=== PATIENT | female | born 1995 | race Caucasian/White ===

== ENCOUNTER 2021-08-10 15:30 | Inpatient (IN) | payer OTHER, SELFPAY ==
[2021-08-10] MEDS: LORazepam 1 MG TABLET PO (17:31)
[2021-08-10 18:00] VITALS: BP 142/91; PULSE 73; RESP 16; TEMP 36.7; O2SAT 96
[2021-08-10] MEDS: traZODone HCL 50 MG TABLET PO (21:02)
[2021-08-10] MEDS: OLANZapine 5 MG TABLET PO (21:02)
[2021-08-11] MEDS: hydrOXYzine HCL 25 MG TABLET PO (00:31)
[2021-08-11] MEDS: traZODone HCL 50 MG TABLET PO ×2 (00:31→20:17)
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
[2021-08-11 06:00] VITALS: BP 131/81; PULSE 77; RESP 15; TEMP 36.6; O2SAT 100
[2021-08-11] MEDS: FLUoxetine HCl Oral Solution 20 MG/5 ML SOLUTION 30 MG PO (09:20)
[2021-08-11] MEDS: ARIPiprazole 2 MG TABLET PO (09:20)
[2021-08-11] MEDS: lamoTRIgine 100 MG TABLET 200 MG PO (09:20)
[2021-08-11] MEDS: Acetaminophen 325 MG TABLET 650 MG PO ×2 (10:04→19:07)
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
[2021-08-11] MEDS: ARIPiprazole 5 MG TABLET PO (12:33)
[2021-08-11] MEDS: LORazepam 0.5 MG TABLET PO (12:33)
[2021-08-11 18:00] VITALS: BP 133/84; PULSE 79; TEMP 36.7; O2SAT 99
[2021-08-11] MEDS: Prazosin HCL 1 MG CAPSULE PO (20:17)
[2021-08-12] MEDS: clonazePAM 0.5 MG TABLET PO ×2 (00:57→11:49)
[2021-08-12 08:07] VITALS: BP 129/69; PULSE 97; TEMP 37.2; O2SAT 100
[2021-08-12] MEDS: ARIPiprazole 5 MG TABLET PO (09:48)
[2021-08-12] MEDS: lamoTRIgine 100 MG TABLET 200 MG PO (09:48)
--- NOTE | 2021-08-12 11:05 | PM.IMCN ---
History of Present Illness Data of Consult Service Date: 08/12/21 Primary Care Provider: Unknown Physician HPI Reason for consult: Medical evaluation A 25 years old lady with history of asthma, bipolar disease who presents to the hospital for Psychiatry admission for episode of molly. The patient reported that she is in good health generally and rarely has to use rescue inhaler for the asthma. Denies any fever, chills, chest pain, change in bowel habit or urinary symptoms. Hospitalist team asked to evaluate the patient as new admission to the psych unit. Review of Systems Review of Systems: No fever, chills or weakness No chest pain, palpitation No shortness of breath or coughing No abdominal pain, nausea or vomiting No urinary symptoms No any rash or wounds PMFSH Medical History Bipolar 1 disorder, manic, moderate Social History Household Members: Other Household Members Other:: sister and partner with her 2 children Housing: House Do you presently have visiting nurse or other home services: No Patient Tobacco Use Status: Never used Tobacco Use of substances other than those prescribed or required for medical reasons: Yes Substance Use Type: Marijuana Substance Use Frequency: Weekly Last Used Substance: Unknown Currently Displaying Signs/Symptoms of Drug Intoxication Withdrawal: No Any prior treatment program specific to substance use: No Have you been hit, kicked, punched, or otherwise hurt by someone within the past year? If so, by whom?: No Do you feel safe in your current relationship?: Yes Is there a partner from a previous relationship who is making you feel unsafe now?: No Are you made to feel afraid or neglected: No Advance Directives: No Advance Directives Information Provided: No Advance Directives on File: No Do you have thoughts of harming others: None Do you have a plan to hurt others: No Plan Recently lost weight without trying: Unsure How much weight loss: Unsure Eating poorly because of decreased appetite: No Nutrition screen score: 4 Nutrition Risks: No Nutritional Risk Patient : No : No Poor oral hygiene: No Meds Allergies Allergy/AdvReac Type Severity Reaction Status Date / Time amoxicillin Allergy Unknown Unknown Verified 08/10/21 14:06 clarithromycin [Biaxin] Allergy Unknown hives Verified 01/21/17 00:00 Active Medications: Current Medications Acetaminophen (Acetaminophen 325 Mg Tablet) 650 mg PO Q6H PRN PRN Reason: Headache/Pain Mild Scale (1-3) Last Admin: 08/11/21 19:07 Dose: 650 mg Documented by: Al Hydroxide/Mg Hydroxide (Magnesium Hydrox/Alum Hydrox 30 Ml Oral.Susp) 30 ml PO Q6H PRN PRN Reason: Heartburn/Nausea Aripiprazole (Aripiprazole 5 Mg Tablet) 5 mg PO DAILY [facility] Last Admin: 08/12/21 09:48 Dose: 5 mg Documented by: Clonazepam (Clonazepam 0.5 Mg Tablet) 0.5 mg PO BID PRN PRN Reason: Anxiety Last Admin: 08/12/21 00:57 Dose: 0.5 mg Documented by: Hydroxyzine HCl (Hydroxyzine Hcl 25 Mg Tablet) 25 mg PO BEDTIME PRN PRN Reason: Anxiety Last Admin: 08/11/21 00:31 Dose: 25 mg Documented by: Lamotrigine (Lamotrigine 100 Mg Tablet) 200 mg PO DAILY [facility] Last Admin: 08/12/21 09:48 Dose: 200 mg Documented by: Magnesium Hydroxide (Milk Of Magnesia 30 Ml Oral.Susp) 30 ml PO DAILY PRN PRN Reason: Constipation Prazosin HCl (Prazosin Hcl 1 Mg Capsule) 1 mg PO BEDTIME [facility]; Protocol Last Admin: 08/11/21 20:17 Dose: 1 mg Documented by: Trazodone HCl (Trazodone Hcl 50 Mg Tablet) 50 mg PO BEDTIME [facility] Last Admin: 08/11/21 20:17 Dose: 50 mg Documented by: Trazodone HCl (Trazodone Hcl 50 Mg Tablet) 50 mg PO BEDTIME PRN PRN Reason: continued insomnia Home Medications Medication Instructions Recorded Confirmed Last Taken Type fluoxetine 10 mg capsule 10 mg PO DAILY 08/10/21 08/10/21 08/09/21 History fluoxetine 20 mg capsule 20 mg PO DAILY 08/10/21 08/10/21 08/09/21 History lamotrigine 200 mg tablet 200 mg PO DAILY 08/10/21 08/10/21 08/09/21 History olanzapine 5 mg tablet 5 mg PO BEDTIME 08/10/21 08/10/21 08/09/21 History Physical Exam Vital Signs and Narrative: Vital Signs: Last Vital Signs Temp 98.9 F 08/12/21 08:07 Pulse 97 08/12/21 08:07 Resp 15 08/11/21 06:00 BP 129/69 08/12/21 08:07 Pulse Ox 100 08/12/21 08:07 Const: Other: Constitutional : Alert, oriented, not in distress Neck : Normal inspection, Supple Cardiovascular : RRR, no JVP, no lower extremity edema Respiratory : fair bilateral air entry, no crackles, wheezes or rhonchi Gastrointestinal: soft, lax, Normal bowel sounds, Non tender Skin : Warm, Dry Neurological : Alert & oriented x3, No focal deficit , CN 2-12 within normal Assessment and Plan (1) Bipolar 1 disorder, manic, moderate: Status: Acute Plan A 25 years old lady with history of asthma, bipolar disease who presents to the hospital for Psychiatry admission for episode of molly. History of asthma To use albuterol inhaler p.r.n. if needed Molly attack, bipolar disease Psychiatry team following for treatment Thank you for the consult, will sign of for now, please contact hospitalist team for any further questions.
--- NOTE | 2021-08-12 12:50 | HO.PSYCHPN ---
Subjective Subjective Date of Service: 08/12/21 Reason For Visit: Bipolar Interim History: gokul worse; no sleep last night; more disorganized walking into others room and sitting on bed, redirectable, but unaware of odditity. Pt agrees zyprexa was helping pt sleep but wants does not want to restart. Laughing hysterically during interview, saying some odd things. She remains with insight that she has gokul from bipolar and wants treatment. Pt agrees to start Depakote. She did not want to know the side-effects/risks at this time but wants to wait until she's more clear minded. Mental Status Exam Mental Status Exam Narrative: Pt is alert and oriented; behavior is cooperative, overly friendly, laughing inappropriately, disorganized, talkative; patient is not in distress; well groomed, dressed in casual attire with good hygiene; mood is described as: just laughs when asked; affect labile; eye contact appropriate; Speech is pressured; normal volume and prosody; psychomotor agitation present; thought process is disorganized but can be reigned in to be goal oriented for a short while; Thought content is on random topics but also on manic episode and tx; can calm down for moments and be pertinent to relevant topics but it does not last; some paranoid ideations about boyfriend, staff expressed; denies any SI/HI. There is no evidence of perceptual disturbance. ?Patients insight and judgment are impaired. Diagnostics Vital Signs (24Hr): Vital Signs - 24 hr 08/11/21 18:00 08/12/21 08:07 Temperature 98.0 F 98.9 F Pulse Rate 79 97 Blood Pressure 133/84 129/69 Pulse Oximetry 99 100 Medications Medications Current Medications Acetaminophen (Acetaminophen 325 Mg Tablet) 650 mg PO Q6H PRN PRN Reason: Headache/Pain Mild Scale (1-3) Last Admin: 08/11/21 19:07 Dose: 650 mg Documented by: Al Hydroxide/Mg Hydroxide (Magnesium Hydrox/Alum Hydrox 30 Ml Oral.Susp) 30 ml PO Q6H PRN PRN Reason: Heartburn/Nausea Aripiprazole (Aripiprazole 5 Mg Tablet) 5 mg PO DAILY [facility] Last Admin: 08/12/21 09:48 Dose: 5 mg Documented by: Clonazepam (Clonazepam 0.5 Mg Tablet) 0.5 mg PO BID PRN PRN Reason: Anxiety Last Admin: 08/12/21 11:49 Dose: 0.5 mg Documented by: Divalproex Sodium (Divalproex Sodium Er 250 Mg Tab.Er.24h) 250 mg PO ONCE ONE Stop: 08/12/21 12:49 Divalproex Sodium (Divalproex Sodium Er 250 Mg Tab.Er.24h) 750 mg PO BEDTIME [facility] Hydroxyzine HCl (Hydroxyzine Hcl 25 Mg Tablet) 25 mg PO BEDTIME PRN PRN Reason: Anxiety Last Admin: 08/11/21 00:31 Dose: 25 mg Documented by: Lamotrigine (Lamotrigine 100 Mg Tablet) 200 mg PO DAILY [facility] Last Admin: 08/12/21 09:48 Dose: 200 mg Documented by: Lorazepam (Lorazepam 1 Mg Tablet) 1 mg PO ONCE ONE Stop: 08/12/21 12:49 Lorazepam (Lorazepam 1 Mg Tablet) 1 mg PO BEDTIME [facility] Magnesium Hydroxide (Milk Of Magnesia 30 Ml Oral.Susp) 30 ml PO DAILY PRN PRN Reason: Constipation Prazosin HCl (Prazosin Hcl 1 Mg Capsule) 1 mg PO BEDTIME [facility]; Protocol Last Admin: 08/11/21 20:17 Dose: 1 mg Documented by: Trazodone HCl (Trazodone Hcl 50 Mg Tablet) 50 mg PO BEDTIME [facility] Last Admin: 08/11/21 20:17 Dose: 50 mg Documented by: Trazodone HCl (Trazodone Hcl 50 Mg Tablet) 50 mg PO BEDTIME PRN PRN Reason: continued insomnia Allergies Allergies Allergy/AdvReac Type Severity Reaction Status Date / Time amoxicillin Allergy Unknown Unknown Verified 08/10/21 14:06 clarithromycin [Biaxin] Allergy Unknown hives Verified 01/21/17 00:00 Assessment & Plan Assessment & Plan (1) Bipolar 1 disorder, manic, moderate: Status: Acute Code(s): F31.12 - Bipolar disorder, current episode manic without psychotic features, moderate 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 -patient moderately manic; bipolar depression under treated on current regimen. -will DC Prozac since it has not helped treat her depression and could contribute manic symptoms -will see if Abilify can help reduce gokul; seems like Zyprexa was helping patient sleep however she does not want this medication due to it makes her anxious she says acne 5/8 more manic and disorganized; did not sleep since off zyprexa; starting depakote. did not see UPT in transfer notes so will order one Plan: CV Q 15 minute checks START Depkaote ER 750mg (gave one time dose of 250mg) Start Ativan 1mg qhs DC abilify DC scheduled trazodone Continue Lamictal 200 mg daily Discontinue Prozac; patient says it has not helped her depression and it is possible it could contribute to having triggered manic episode along with Adderall Discontinue Zyprexa: Patient says she does not want Labs reviewed: CBC, LFTs, lytes, BUN/creatinine all within normal limits UDS negative COVID negative Urine ? I spent minutes with the patient and/or on the patient floor today, greater than?50% of which was spent counseling/coordinating care. Patient educated on: diagnosis and medication risk/benefits Informed Consent: understands Reason for contiued inpatient stay Substantial Risk for: rapid decompensation
[2021-08-12] MEDS: LORazepam 1 MG TABLET PO (13:50)
[2021-08-12] MEDS: Divalproex Sodium ER 250 MG TAB.ER.24H PO (13:50)
[2021-08-12 18:00] VITALS: BP 125/78; PULSE 104; RESP 18; TEMP 37; O2SAT 98
[2021-08-12 18:42] LABS: UPreg QC Valid YES; Urine Pregnancy NEGATIVE (NEGATIVE)
[2021-08-12] MEDS: Divalproex Sodium ER 250 MG TAB.ER.24H 750 MG PO (21:45)
[2021-08-12] MEDS: Prazosin HCL 1 MG CAPSULE PO (21:46)
[2021-08-12] MEDS: traZODone HCL 50 MG TABLET PO (21:46)
[2021-08-13] MEDS: hydrOXYzine HCL 25 MG TABLET PO (00:25)
[2021-08-13] MEDS: Divalproex Sodium ER 500 MG TAB.ER.24H PO (02:30)
[2021-08-13] MEDS: LORazepam 1 MG TABLET PO ×3 (02:30→22:12)
[2021-08-13 08:00] VITALS: BP 111/68; PULSE 110; TEMP 36.8; O2SAT 98
[2021-08-13] MEDS: lamoTRIgine 100 MG TABLET 200 MG PO (09:22)
[2021-08-13] MEDS: clonazePAM 0.5 MG TABLET PO (13:25)
--- NOTE | 2021-08-13 16:53 | HO.PSYCHPN ---
Subjective Subjective Date of Service: 08/13/21 Reason For Visit: Bipolar Interim History: Patient remains manic. Patient is laughing inappropriately. She says at least a know who my family is... I think and then she lists some but she says I need to figure out who I am. Then she said I know my boyfriend is.. is it him or is it him? At one point, Patient endorses auditory hallucinations and got paranoid and fearful but could not say about what but started to cry. Patient reports she slept a little better last night. She agrees to continue with Depakote pt's cousin came to visit and encouraged patient to remain on the unit as patient was making her to take her home. Cousins says that this is close to his bad as she seen patient before. Also that patient has paranoid thoughts about her mother who cousin says is very gentle and loving. Mental Status Exam Mental Status Exam Narrative: Pt is alert and oriented; behavior is disorganized ranging from cooperative, overly friendly, laughing inappropriately to paranoid, tearful; well groomed, dressed in casual attire with good hygiene; mood is described as anxious and affect labile; eye contact appropriate; Speech is pressured; normal volume and prosody; psychomotor agitation present; thought process is disorganized but can be reigned in to be goal oriented for a short while; Thought content is on random topics but also on manic episode and tx; can calm down for moments and be pertinent to relevant topics but it does not last; intermittent paranoid ideations about people; denies any SI/HI. +AH ?Patients insight and judgment are impaired. Diagnostics Vital Signs (24Hr): Vital Signs - 24 hr 08/12/21 18:00 08/13/21 08:00 Temperature 98.6 F 98.3 F Pulse Rate 104 H 110 H Respiratory Rate 18 Blood Pressure 125/78 111/68 Pulse Oximetry 98 98 Labs Labs: Laboratory Results - last 48 hr 08/12/21 17:50 Urine Test NEGATIVE Medications Medications Current Medications Acetaminophen (Acetaminophen 325 Mg Tablet) 650 mg PO Q6H PRN PRN Reason: Headache/Pain Mild Scale (1-3) Last Admin: 08/11/21 19:07 Dose: 650 mg Documented by: Al Hydroxide/Mg Hydroxide (Magnesium Hydrox/Alum Hydrox 30 Ml Oral.Susp) 30 ml PO Q6H PRN PRN Reason: Heartburn/Nausea Divalproex Sodium (Divalproex Sodium Er 500 Mg Tab.Er.24h) 1,000 mg PO BEDTIME [facility] Divalproex Sodium (Divalproex Sodium Er 500 Mg Tab.Er.24h) 500 mg PO DAILY [facility] Hydroxyzine HCl (Hydroxyzine Hcl 25 Mg Tablet) 25 mg PO QID PRN PRN Reason: Anxiety Lamotrigine (Lamotrigine 100 Mg Tablet) 200 mg PO DAILY [facility] Last Admin: 08/13/21 09:22 Dose: 200 mg Documented by: Lorazepam (Lorazepam 1 Mg Tablet) 1 mg PO BEDTIME [facility] Last Admin: 08/12/21 23:41 Dose: Not Given Documented by: Lorazepam (Lorazepam 1 Mg Tablet) 1 mg PO Q6H PRN PRN Reason: Anxiety Magnesium Hydroxide (Milk Of Magnesia 30 Ml Oral.Susp) 30 ml PO DAILY PRN PRN Reason: Constipation Prazosin HCl (Prazosin Hcl 1 Mg Capsule) 2 mg PO BEDTIME [facility]; Protocol Trazodone HCl (Trazodone Hcl 50 Mg Tablet) 50 mg PO BEDTIME PRN PRN Reason: continued insomnia Last Admin: 08/12/21 21:46 Dose: 50 mg Documented by: Allergies Allergies Allergy/AdvReac Type Severity Reaction Status Date / Time amoxicillin Allergy Unknown Unknown Verified 08/10/21 14:06 clarithromycin [Biaxin] Allergy Unknown hives Verified 01/21/17 00:00 Assessment & Plan Assessment & Plan (1) Bipolar I disorder, most recent episode manic, severe with psychotic features: Status: Acute Code(s): F31.2 - Bipolar disorder, current episode manic severe with psychotic features Plan 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 Hospital course: -initially patient moderately manic; bipolar depression under treated on current regimen. -will DC Prozac since it has not helped treat her depression and could contribute manic symptoms -will see if Abilify can help reduce gokul; seems like Zyprexa was helping patient sleep however she does not want this medication due to it makes her anxious she says acne 5/8 more manic and disorganized; did not sleep since off zyprexa; starting depakote. did not see UPT in transfer notes so will order one 08/13 patient continues to be manic and disorganized, labile, paranoid with auditory hallucinations. It seems that Zyprexa which was started at [facility] while waiting for admission, was partially helpful; however patient wanted to come off it and start Depakote instead. Will continue with Depakote for now however if patient does not at least partially response soon will very likely adds another medication. Patient has insight to know that she has bipolar disorder and is currently manic in need of medications; however she does not grasp the severity has placed a 3 day wanting to discharge; she says she will retract but has not yet done so PLAN: 3 day Q 15 minute checks Continue Depakote ER 500 mg in the a.m. and 1000 mg q.h.s. Valproate level ordered LFTs and ammonia labs ordered Ativan 1mg qhs and as prn DC abilify (only on 2mg, reportedly started at [facility]) DC scheduled trazodone Continue Lamictal 200 mg daily Discontinue Prozac; patient says it has not helped her depression and it is possible it could contribute to having triggered manic episode along with Adderall Discontinue Zyprexa (started at [facility]):? Patient says she does not want Labs reviewed: CBC, LFTs, lytes, BUN/creatinine all within normal limits UDS negative COVID negative Urine : negative I spent minutes with the patient and/or on the patient floor today, greater than?50% of which was spent counseling/coordinating care. Patient educated on: diagnosis and medication risk/benefits Informed Consent: understands Reason for contiued inpatient stay Substantial Risk for: inability to function and rapid decompensation
[2021-08-13 21:10] VITALS: BP 134/84; PULSE 114; TEMP 36.7
[2021-08-13] MEDS: Prazosin HCL 1 MG CAPSULE 2 MG PO (22:11)
[2021-08-13] MEDS: Divalproex Sodium ER 500 MG TAB.ER.24H 1000 MG PO (22:12)
[2021-08-14 06:00] VITALS: BP 131/86; PULSE 109; RESP 20; TEMP 36.9; O2SAT 98
[2021-08-14] MEDS: Divalproex Sodium ER 500 MG TAB.ER.24H PO (08:01)
[2021-08-14] MEDS: lamoTRIgine 100 MG TABLET 200 MG PO (08:01)
[2021-08-14] MEDS: LORazepam 1 MG TABLET PO ×2 (08:01→21:47)
--- NOTE | 2021-08-14 15:01 | PC.NURSE ---
Pt signed a 3 day note on 08/14, up on 08/17
--- NOTE | 2021-08-14 15:36 | P.PNPSI_ITS ---
Subjective Subjective Date of Service: 08/14/21 Reason For Visit: Bipolar Interim History: pt agrees outward behavior a little calmer, however she feels internally reeved up and she remains manic. Pt has AH which she says is worsening; it's sometimes of encouraging voices of cousins, but other times, it's a running disparagig commentary about what she's doing such as that's stupid. She is grateful to learn from ghost writer that this is a hallucination caused by Bipolar illness since pt says it's seems increasingly real. Pt feels paranoid and confused but has a hard time articulating details. She reports little to no sleep last night. Discussed treatment and pt agrees symptoms worsened some when stopped zyprexa, however this med also seemed to increase anxiety and pt does not like risk of wt gain side-effect. Discussed Ziprasidone risks/benefits and she agrees to trial as psychotic symptoms associated w/ gokul are becoming more pronounced. Pt randomly started taking about putting herself in Trendelenburg position for the baby which she wanted; later explained that she was but took plan B. Mental Status Exam Mental Status Exam Narrative: Pt is alert and oriented; behavior is disorganized ranging from cooperative, overly friendly, laughing inappropriately to paranoid, tearful; well groomed, dressed in casual attire with good hygiene; mood is described as anxious and affect labile; eye contact appropriate; Speech is pressured (though a little less so); normal volume and prosody;some psychomotor agitation present but a little less; thought process is disorganized but can be reigned in to be goal oriented for a short while; Thought content is on random topics but also on manic episode and tx; can calm down for moments and be pertinent to relevant topics but it does not last; intermittent paranoid ideations about people; denies any SI/HI. +AH ?Patients insight and judgment are impaired. Diagnostics Vital Signs (24Hr): Vital Signs - 24 hr 08/13/21 21:10 08/14/21 06:00 Temperature 98.1 F 98.4 F Pulse Rate 114 H 109 H Respiratory Rate 20 Blood Pressure 134/84 131/86 Pulse Oximetry 98 Labs Labs: Laboratory Results - last 48 hr 08/12/21 17:50 Urine Test NEGATIVE Medications Medications Current Medications Acetaminophen (Acetaminophen 325 Mg Tablet) 650 mg PO Q6H PRN PRN Reason: Headache/Pain Mild Scale (1-3) Last Admin: 08/11/21 19:07 Dose: 650 mg Documented by: Al Hydroxide/Mg Hydroxide (Magnesium Hydrox/Alum Hydrox 30 Ml Oral.Susp) 30 ml PO Q6H PRN PRN Reason: Heartburn/Nausea Albuterol Sulfate (Albuterol Sulfate 90 Mcg 8 Gm Inhaler) 2 puff INHALE RQ4H PRN PRN Reason: Shortness of Breath Divalproex Sodium (Divalproex Sodium Er 500 Mg Tab.Er.24h) 1,000 mg PO BEDTIME [facility] Last Admin: 08/13/21 22:12 Dose: 1,000 mg Documented by: Divalproex Sodium (Divalproex Sodium Er 500 Mg Tab.Er.24h) 500 mg PO DAILY [facility] Last Admin: 08/14/21 08:01 Dose: 500 mg Documented by: Hydroxyzine HCl (Hydroxyzine Hcl 25 Mg Tablet) 25 mg PO QID PRN PRN Reason: Anxiety Lamotrigine (Lamotrigine 100 Mg Tablet) 200 mg PO DAILY [facility] Last Admin: 08/14/21 08:01 Dose: 200 mg Documented by: Lorazepam (Lorazepam 1 Mg Tablet) 1 mg PO BEDTIME [facility] Last Admin: 08/13/21 22:12 Dose: 1 mg Documented by: Lorazepam (Lorazepam 1 Mg Tablet) 1 mg PO Q6H PRN PRN Reason: Anxiety Last Admin: 08/14/21 08:01 Dose: 1 mg Documented by: Magnesium Hydroxide (Milk Of Magnesia 30 Ml Oral.Susp) 30 ml PO DAILY PRN PRN Reason: Constipation Prazosin HCl (Prazosin Hcl 1 Mg Capsule) 2 mg PO BEDTIME [facility]; Protocol Last Admin: 08/13/21 22:11 Dose: 2 mg Documented by: Trazodone HCl (Trazodone Hcl 50 Mg Tablet) 50 mg PO BEDTIME PRN PRN Reason: continued insomnia Last Admin: 08/12/21 21:46 Dose: 50 mg Documented by: Ziprasidone (Ziprasidone 20 Mg Capsule) 20 mg PO ONCE ONE Stop: 08/14/21 15:35 Ziprasidone (Ziprasidone 20 Mg Capsule) 20 mg PO BIDAC [facility] Allergies Allergies Allergy/AdvReac Type Severity Reaction Status Date / Time amoxicillin Allergy Unknown Unknown Verified 08/10/21 14:06 clarithromycin [Biaxin] Allergy Unknown hives Verified 01/21/17 00:00 Assessment & Plan Assessment & Plan (1) Bipolar I disorder, most recent episode manic, severe with psychotic features: Status: Acute Code(s): F31.2 - Bipolar disorder, current episode manic severe with psychotic features 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 Hospital course: -initially patient moderately manic; bipolar depression under treated on current regimen. -will DC Prozac since it has not helped treat her depression and could contribute manic symptoms -will see if Abilify can help reduce gokul; seems like Zyprexa was helping patient sleep however she does not want this medication due to it makes her anxious she says acne 5 more manic and disorganized; did not sleep since off zyprexa; starting depakote. don't see UPT in transfer notes so will order 08/13 patient continues to be manic and disorganized, labile, paranoid with auditory hallucinations. It seems that Zyprexa which was started at [facility] ED while waiting for admission, was partially helpful; however patient wanted to come off it and start Depakote instead. Will continue with Depakote for now however if patient does not at least partially response soon will very likely adds another medication. Patient has insight to know that she has bipolar disorder and is currently manic in need of medications; however she does not grasp the severity has placed a 3 day wanting to discharge; she says she will retract but has not yet done so 5/10 less hyperactive and speech less pressured, but increase in AH and paranoid thoughts and confusion. Little to no sleep last night. Agrees to add Ziprasidone to regimen (zyprexa seemed helpful, but side-effects) PLAN: 3 day Q 15 minute checks START Ziprasidone 20mg BIDAC for additional mood stabilizer as psychotic symptoms worsening Continue Depakote ER 500 mg in the a.m. and 1000 mg q.h.s.; helped reduce pressured speech and some hyperactivity Valproate level ordered LFTs and ammonia labs ordered Ativan 1mg qhs and as prn DC abilify (only on 2mg, reportedly started at [facility]) DC scheduled trazodone Continue Lamictal 200 mg daily Discontinue Prozac; patient says it has not helped her depression and it is possible it could contribute to having triggered manic episode along with Adderall Discontinue Zyprexa (started at [facility]):? Patient says she does not want Labs reviewed: CBC, LFTs, lytes, BUN/creatinine all within normal limits UDS negative COVID negative Urine : negative I spent minutes with the patient and/or on the patient floor today, greater than?50% of which was spent counseling/coordinating care. Patient educated on: diagnosis and medication risk/benefits Informed Consent: understands Reason for contiued inpatient stay Substantial Risk for: inability to function and rapid decompensation
[2021-08-14] MEDS: Ziprasidone 20 MG CAPSULE PO ×2 (16:24→21:47)
[2021-08-14] MEDS: Divalproex Sodium ER 500 MG TAB.ER.24H 1000 MG PO (21:46)
[2021-08-14] MEDS: Prazosin HCL 1 MG CAPSULE 2 MG PO (21:48)
[2021-08-14 21:50] VITALS: BP 129/75; PULSE 109; TEMP 37.1
[2021-08-15 08:50] VITALS: BP 132/76; PULSE 101; TEMP 36.7; O2SAT 100
[2021-08-15] MEDS: lamoTRIgine 100 MG TABLET 200 MG PO (08:58)
[2021-08-15] MEDS: Divalproex Sodium ER 500 MG TAB.ER.24H PO (08:59)
[2021-08-15] MEDS: Ziprasidone 20 MG CAPSULE PO ×2 (08:59→12:54)
--- NOTE | 2021-08-15 10:23 | P.PNPSI_ITS ---
Subjective Subjective Date of Service: 08/15/21 Reason For Visit: Bipolar Interim History: continued and worsening AH and delusional thinking. Agrees to try Risperdal and dc Ziprasidone Patient shared her struggles with paranoid delusional thoughts, saying she is not sure if her father is a real father, her mother her room other. She says she knows she is not but in her head she thinks she is and has thought she is giving . At 1 point patient asked if mortgage loan underwriter was her father. Patient shared the emotional Angst she is going through feeling so confused. She knows the confusion and the delusions are not real even though they feel real to her and she knows it is due to her bipolar illness. Patient is able to reality test and responds well when mortgage loan underwriter Helps her do so. Patient shared about some family dynamics between her, her mother and father however it is not clear if this is delusional or factual Mental Status Exam Mental Status Exam Narrative: Pt is alert and oriented; behavior is no longer hyperactive, however it ranges from disorganized to organized, cooperative and overly friendly to paranoid; laughing inappropriately or tearful; well groomed, dressed in casual attire with good hygiene; mood is described as anxious and affect labile; eye contact appropriate; Speech is no longer pressured; normal volume and prosody;no psychomotor agitation present; thought process can be goal oriented for a time but easily becomes distracted and disorganize; Thought content is on random delusional topics but she also on current manic episode and tx; intermittent paranoid ideations about people; denies any SI/HI. +AH ?Patients insight and judgment are impaired. Diagnostics Vital Signs (24Hr): Vital Signs - 24 hr 08/14/21 21:50 08/15/21 08:50 Temperature 98.7 F 98.1 F Pulse Rate 109 H 101 H Blood Pressure 129/75 132/76 Pulse Oximetry 100 Medications Medications Current Medications Acetaminophen (Acetaminophen 325 Mg Tablet) 650 mg PO Q6H PRN PRN Reason: Headache/Pain Mild Scale (1-3) Last Admin: 08/11/21 19:07 Dose: 650 mg Documented by: Al Hydroxide/Mg Hydroxide (Magnesium Hydrox/Alum Hydrox 30 Ml Oral.Susp) 30 ml PO Q6H PRN PRN Reason: Heartburn/Nausea Albuterol Sulfate (Albuterol Sulfate 90 Mcg 8 Gm Inhaler) 2 puff INHALE RQ4H PRN PRN Reason: Shortness of Breath Divalproex Sodium (Divalproex Sodium Er 500 Mg Tab.Er.24h) 1,000 mg PO BEDTIME [facility] Last Admin: 08/14/21 21:46 Dose: 1,000 mg Documented by: Divalproex Sodium (Divalproex Sodium Er 500 Mg Tab.Er.24h) 500 mg PO DAILY [facility] Last Admin: 08/15/21 08:59 Dose: 500 mg Documented by: Hydroxyzine HCl (Hydroxyzine Hcl 25 Mg Tablet) 25 mg PO QID PRN PRN Reason: Anxiety Lamotrigine (Lamotrigine 100 Mg Tablet) 200 mg PO DAILY [facility] Last Admin: 08/15/21 08:58 Dose: 200 mg Documented by: Lorazepam (Lorazepam 1 Mg Tablet) 1 mg PO BEDTIME [facility] Last Admin: 08/14/21 21:47 Dose: 1 mg Documented by: Lorazepam (Lorazepam 1 Mg Tablet) 1 mg PO Q6H PRN PRN Reason: Anxiety Last Admin: 08/14/21 08:01 Dose: 1 mg Documented by: Magnesium Hydroxide (Milk Of Magnesia 30 Ml Oral.Susp) 30 ml PO DAILY PRN PRN Reason: Constipation Prazosin HCl (Prazosin Hcl 1 Mg Capsule) 2 mg PO BEDTIME [facility]; Protocol Last Admin: 08/14/21 21:48 Dose: 2 mg Documented by: Trazodone HCl (Trazodone Hcl 50 Mg Tablet) 50 mg PO BEDTIME PRN PRN Reason: continued insomnia Last Admin: 08/12/21 21:46 Dose: 50 mg Documented by: Ziprasidone (Ziprasidone 20 Mg Capsule) 20 mg PO BIDAC [facility] Last Admin: 08/15/21 08:59 Dose: 20 mg Documented by: Allergies Allergies Allergy/AdvReac Type Severity Reaction Status Date / Time amoxicillin Allergy Unknown Unknown Verified 08/10/21 14:06 clarithromycin [Biaxin] Allergy Unknown hives Verified 01/21/17 00:00 Assessment & Plan Assessment & Plan (1) Bipolar I disorder, most recent episode manic, severe with psychotic features: Status: Acute Code(s): F31.2 - Bipolar disorder, current episode manic severe with psychotic features 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 Hospital course: -initially patient moderately manic; bipolar depression under treated on current regimen. -will DC Prozac since it has not helped treat her depression and could contribute manic symptoms -will see if Abilify can help reduce gokul; seems like Zyprexa was helping patient sleep however she does not want this medication due to it makes her anxious she says acne 08/12 more manic and disorganized; did not sleep since off zyprexa; starting depakote. don't see UPT in transfer notes so will order 08/13 patient continues to be manic and disorganized, labile, paranoid with auditory hallucinations. It seems that Zyprexa which was started at [facility] ED while waiting for admission, was partially helpful; however patient wanted to come off it and start Depakote instead. Will continue with Depakote for now however if patient does not at least partially response soon will very likely adds another medication. Patient has insight to know that she has bipolar disorder and is currently manic in need of medications; however she does not grasp the severity has placed a 3 day wanting to discharge; she says she will retract but has not yet done so 510 less hyperactive and speech less pressured, but increase in AH and paranoid thoughts and confusion. Little to no sleep last night. Agrees to add Ziprasidone to regimen (zyprexa seemed helpful, but side-effects) 08/15 Remains less hyperactive and speech is not pressured however auditory hallucinations and paranoid delusional thoughts remain and At times seem to worsen. Patient is struggling to challenge her delusional thinking with reality but needs staff assistance to do so. She agrees to stop ziprasidone and start Risperdal. Patient is to disorganized to be able to function in the community and needs to remain on the unit until symptoms significantly reduce PLAN: 3 day Q 15 minute checks START Risperdal 1mg BID DC Ziprasidone: not helpful (though only at starting dose, AH worsened) Continue Depakote ER 500 mg in the a.m. and 1000 mg q.h.s.; helped reduce pressured speech and some hyperactivity Valproate level ordered LFTs and ammonia labs ordered Ativan 1mg qhs and as prn DC abilify (only on 2mg, reportedly started at [facility]) DC scheduled trazodone Continue Lamictal 200 mg daily Discontinue Prozac; patient says it has not helped her depression and it is possible it could contribute to having triggered manic episode along with Adderall Discontinue Zyprexa (started at [facility]):? Patient says she does not want Labs reviewed: CBC, LFTs, lytes, BUN/creatinine all within normal limits UDS negative COVID negative Urine : negative I spent minutes with the patient and/or on the patient floor today, greater than?50% of which was spent counseling/coordinating care. Patient educated on: diagnosis and medication risk/benefits Informed Consent: understands Reason for contiued inpatient stay Substantial Risk for: inability to function and rapid decompensation
[2021-08-15] MEDS: LORazepam 1 MG TABLET PO ×2 (14:38→20:20)
[2021-08-15] MEDS: risperiDONE 1 MG TABLET PO ×2 (14:38→20:20)
[2021-08-15 17:22] VITALS: BP 120/77; PULSE 109; RESP 18; TEMP 36.5; O2SAT 98
[2021-08-15] MEDS: Divalproex Sodium ER 500 MG TAB.ER.24H 1000 MG PO (20:19)
[2021-08-15] MEDS: Prazosin HCL 1 MG CAPSULE 2 MG PO (20:20)
[2021-08-15] MEDS: hydrOXYzine HCL 25 MG TABLET PO (20:20)
[2021-08-16] MEDS: LORazepam 1 MG TABLET PO ×3 (03:52→19:54)
[2021-08-16 06:00] VITALS: BP 117/62; PULSE 120; TEMP 36.4; O2SAT 98
[2021-08-16 07:28] LABS: Ammonia 24 umol/L (13-55)
[2021-08-16 07:43] LABS: Estimated Average Glucose 94 mg/dL; Hemoglobin A1c % 4.9 %
[2021-08-16 07:54] LABS: Alanine Aminotransferase 15 U/L (0-31); Albumin Level 4.2 g/dL (3.5-5.0); Alkaline Phosphatase 44 U/L (39-117); Aspartate Amino Transferase 18 U/L (5-31); Bilirubin Direct < 0.2 mg/dL (0.0-0.5); Bilirubin Total < 0.2 mg/dL (0.0-1.0); Cholesterol 140 mg/dL; HDL Cholesterol 61 mg/dL; LDL Cholesterol Calculated 71 mg/dl; Total Protein 6.7 g/dL (6.5-8.0); Triglycerides 41 mg/dL
[2021-08-16 08:07] LABS: Valproate 82.3 mcg/mL (50.0-100.0)
[2021-08-16 08:23] LABS: Reflex LDLD? No
[2021-08-16] MEDS: lamoTRIgine 100 MG TABLET 200 MG PO (08:49)
[2021-08-16] MEDS: risperiDONE 1 MG TABLET PO (08:50)
[2021-08-16] MEDS: Divalproex Sodium ER 500 MG TAB.ER.24H PO (08:50)
[2021-08-16] MEDS: Albuterol Sulfate 90 MCG 8 GM INHALER 2 PUFF INHALE (09:43)
--- NOTE | 2021-08-16 10:31 | P.PNPSI_ITS ---
Subjective Subjective Date of Service: 08/16/21 Reason For Visit: Bipolar Interim History: Met today with patient and her father Kg. Patient says she did not sleep last night and that the auditory hallucinations remain. Patient also has continued delusional thinking, not sure what is and what is not real, sometimes thinking staff is her family member. Patient can be goal oriented and discuss her illness and medications however her ability to remain organized is limited and she quickly becomes disorganized, making unrelated or bizarre comments. Patient gets tearful saying how confusing this is and how upsetting. Discussed medication treatment thus far and plan going forward. Although Risperdal has not gotten a chance to see if effective, patient would like to just go ahead and we start Zyprexa, even though it has caused waking in the past, simply because she is miserable with the continued delusional thinking. Although not fully confirmed, it seems that patient has been on this medication in the past for some duration which was found effective but patient also developed weight gain. Patient's father gave some additional history and said that patient's 1st manic break was when she was 16 years old. He said she has had 4 manic episodes overall and this current one is a normal presentation for her when manic. Father confirmed that patient has troubled relationship with her mother ever since parents , blaming her mother. Mental Status Exam Mental Status Exam Narrative: Pt is alert and oriented; behavior is no longer hyperactive, however it ranges from disorganized to organized, cooperative and overly friendly to paranoid; laughing inappropriately or tearful; well groomed, dressed in casual attire with good hygiene; mood is described as anxious and affect labile; eye contact appropriate; Speech is no longer pressured; normal volume and prosody;no psychomotor agitation present;? thought process can be goal oriented for a time but easily becomes distracted and disorganize; Thought content is on random delusional topics but she also on current manic episode and tx; intermittent paranoid ideations about people; denies any SI/HI. +AH ?Patients insight and judgment are impaired. Diagnostics Vital Signs (24Hr): Vital Signs - 24 hr 08/15/21 17:22 08/16/21 06:00 Temperature 97.7 F 97.6 F Pulse Rate 109 H 120 H Respiratory Rate 18 Blood Pressure 120/77 117/62 Pulse Oximetry 98 98 Labs Labs: Laboratory Results - last 48 hr 08/16/21 08/16/21 08/16/21 06:53 06:53 06:53 Estimat Average Glucose 94 Hemoglobin A1c % 4.9 Total Bilirubin < 0.2 Direct Bilirubin < 0.2 AST 18 ALT 15 Alkaline Phosphatase 44 Ammonia 24 Total Protein 6.7 Albumin 4.2 Triglycerides 41 Cholesterol 140 LDL Cholesterol, Calc 71 HDL Cholesterol 61 Valproic Acid 82.3 Medications Medications Current Medications Acetaminophen (Acetaminophen 325 Mg Tablet) 650 mg PO Q6H PRN PRN Reason: Headache/Pain Mild Scale (1-3) Last Admin: 08/11/21 19:07 Dose: 650 mg Documented by: Al Hydroxide/Mg Hydroxide (Magnesium Hydrox/Alum Hydrox 30 Ml Oral.Susp) 30 ml PO Q6H PRN PRN Reason: Heartburn/Nausea Albuterol Sulfate (Albuterol Sulfate 90 Mcg 8 Gm Inhaler) 2 puff INHALE RQ4H PRN PRN Reason: Shortness of Breath Last Admin: 08/16/21 09:43 Dose: 2 puff Documented by: Divalproex Sodium (Divalproex Sodium Er 500 Mg Tab.Er.24h) 1,000 mg PO BEDTIME [facility] Last Admin: 08/15/21 20:19 Dose: 1,000 mg Documented by: Divalproex Sodium (Divalproex Sodium Er 500 Mg Tab.Er.24h) 500 mg PO DAILY [facility] Last Admin: 08/16/21 08:50 Dose: 500 mg Documented by: Hydroxyzine HCl (Hydroxyzine Hcl 25 Mg Tablet) 25 mg PO QID PRN PRN Reason: Anxiety Last Admin: 08/15/21 20:20 Dose: 25 mg Documented by: Lamotrigine (Lamotrigine 100 Mg Tablet) 200 mg PO DAILY [facility] Last Admin: 08/16/21 08:49 Dose: 200 mg Documented by: Lorazepam (Lorazepam 1 Mg Tablet) 1 mg PO BEDTIME [facility] Last Admin: 08/16/21 03:52 Dose: 1 mg Documented by: Lorazepam (Lorazepam 1 Mg Tablet) 1 mg PO Q6H PRN PRN Reason: Anxiety Last Admin: 08/14/21 08:01 Dose: 1 mg Documented by: Magnesium Hydroxide (Milk Of Magnesia 30 Ml Oral.Susp) 30 ml PO DAILY PRN PRN Reason: Constipation Prazosin HCl (Prazosin Hcl 1 Mg Capsule) 2 mg PO BEDTIME [facility]; Protocol Last Admin: 08/15/21 20:20 Dose: 2 mg Documented by: Risperidone (Risperidone 1 Mg Tablet) 1 mg PO BID [facility] Last Admin: 08/16/21 08:50 Dose: 1 mg Documented by: Trazodone HCl (Trazodone Hcl 50 Mg Tablet) 50 mg PO BEDTIME PRN PRN Reason: continued insomnia Last Admin: 08/12/21 21:46 Dose: 50 mg Documented by: Allergies Allergies Allergy/AdvReac Type Severity Reaction Status Date / Time amoxicillin Allergy Unknown Unknown Verified 08/10/21 14:06 clarithromycin [Biaxin] Allergy Unknown hives Verified 01/21/17 00:00 Assessment & Plan Assessment & Plan (1) Bipolar I disorder, most recent episode manic, severe with psychotic features: Status: Acute Code(s): F31.2 - Bipolar disorder, current episode manic severe with psychotic features 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 Hospital course: -initially patient moderately manic; bipolar depression under treated on current regimen. -will DC Prozac since it has not helped treat her depression and could contribute manic symptoms -will see if Abilify can help reduce gokul; seems like Zyprexa was helping patient sleep however she does not want this medication due to it makes her anxious she says acne 08/12 more manic and disorganized; did not sleep since off zyprexa; starting depakote. don't see UPT in transfer notes so will order 08/13 patient continues to be manic and disorganized, labile, paranoid with auditory hallucinations. It seems that Zyprexa which was started at [facility] ED while waiting for admission, was partially helpful; however patient wanted to come off it and start Depakote instead. Will continue with Depakote for now however if patient does not at least partially response soon will very likely adds another medication. Patient has insight to know that she has bipolar disorder and is currently manic in need of medications; however she does not grasp the severity has placed a 3 day wanting to discharge; she says she will retract but has not yet done so 5 less hyperactive and speech less pressured, but increase in AH and paranoid thoughts and confusion. Little to no sleep last night. Agrees to add Ziprasi done to regimen (zyprexa seemed helpful, but side-effects) 08/15 Remains less hyperactive and speech is not pressured however auditory hallucinations and paranoid delusional thoughts remain and At times seem to worsen. Patient is struggling to challenge her delusional thinking with reality but needs staff assistance to do so. She agrees to stop ziprasidone and start Risperdal. Patient is to disorganized to be able to function in the community and needs to remain on the unit until symptoms significantly reduce 08/16 low-dose Risperdal has not yet been helpful; given the continued upsetting auditory hallucinations and delusions, patient wants to just go ahead and retry Zyprexa which has been helpful in the past though it causes weight gain. Patient said she would retract PLAN: 3 day Q 15 minute checks ONE Time dose of Zyprexa 5mg START Zyprexa 10mg qhs DC Risperdal (does not want to wait to see if helpful and rather go back to zyprexa) DC Ziprasidone: not helpful (though only at starting dose, AH worsened) Continue Depakote ER 500 mg in the a.m. and 1000 mg q.h.s.; helped reduce pressured speech and some hyperactivity Valproate level WNL LFTs and ammonia WNL Ativan 1mg qhs and as prn Continue Lamictal 200 mg daily Discontinue Prozac; patient says it has not helped her depression and it is possible it could contribute to having triggered manic episode along with Adderall Discontinue Zyprexa (started at [facility]):? Patient says she does not want DC abilify reportedly started at [facility]) DC scheduled trazodone Labs reviewed: CBC, LFTs, lytes, BUN/creatinine all within normal limits UDS negative COVID negative Urine : negative I spent minutes with the patient and/or on the patient floor today, greater than?50% of which was spent counseling/coordinating care. Patient educated on: diagnosis and medication risk/benefits Informed Consent: understands Reason for contiued inpatient stay Substantial Risk for: inability to function
[2021-08-16] MEDS: OLANZapine 5 MG TABLET PO (11:41)
[2021-08-16 18:00] VITALS: BP 134/84; PULSE 127; RESP 22; TEMP 36.3; O2SAT 98
[2021-08-16] MEDS: Magnesium Hydrox/Alum Hydrox 30 ML ORAL.SUSP PO (18:04)
[2021-08-16] MEDS: hydrOXYzine HCL 25 MG TABLET PO (18:57)
[2021-08-16] MEDS: Divalproex Sodium ER 500 MG TAB.ER.24H 1000 MG PO (19:53)
[2021-08-16] MEDS: traZODone HCL 50 MG TABLET PO (19:53)
[2021-08-16] MEDS: OLANZapine 10 MG TABLET PO (19:53)
[2021-08-16] MEDS: Prazosin HCL 1 MG CAPSULE 2 MG PO (19:54)
[2021-08-17] MEDS: traZODone HCL 50 MG TABLET PO ×2 (00:36→21:12)
[2021-08-17] MEDS: LORazepam 1 MG TABLET PO ×2 (03:29→11:51)
[2021-08-17] MEDS: OLANZapine 2.5 MG TABLET PO (03:29)
[2021-08-17 06:00] VITALS: BP 137/92; PULSE 110; TEMP 36.1; O2SAT 98
[2021-08-17] MEDS: Albuterol Sulfate 90 MCG 8 GM INHALER 2 PUFF INHALE (06:45)
[2021-08-17] MEDS: hydrOXYzine HCL 25 MG TABLET PO (06:48)
--- NOTE | 2021-08-17 07:26 | PC.NURSE ---
Upon arrival on unit at 2340, Pt was up in arora, was redirected to bed. At 0010, pt was lying in bed awake. 0030 pt was up in hallway and walking after having rec'd trazodone. She remained up and walking until 0055. Redirected to room. At 0115, pt up in the arora, wanted snack. At 0130, pt discussed with RN that she was seeing black spots, hearing her cousins talking above her, stated that she had not yet fallen asleep at all, also stated that she is scared to go to sleep . Currently sitting in the kitchen. At 0135, Pt remarked, I definitely gotta get out of here soon ~ I don't wanna have my baby here. Pt returned to room shortly after, at 0210, appeared to be sleeping. Woke at 0305, up walking in hallway, pt states she is controlled by peer in [facility], talking about her baby again. At 0320, she accepted Ativan 1mg and Zyprexa 2.5mg and gave her the headphones, she asked this policy writer typist if the ativan and zyprexa are safe for her baby. Redirected back to room. At 0345, Pt up in the hallway again and she was redirected back to bed. At 0420, she was in bed but not sleeping. Appeared to sleep until 0505, at which time she was up in the hallway dancing. At 0510, she wanted to do her laundry. At 0515, she was up watching tv in kitchen and as of 0743, presently still up. Really didn't sleep more than 1.5 hrs, if even that.
[2021-08-17] MEDS: Divalproex Sodium ER 500 MG TAB.ER.24H PO (08:17)
[2021-08-17] MEDS: lamoTRIgine 100 MG TABLET 200 MG PO (08:17)
--- NOTE | 2021-08-17 09:02 | ECG_ITS ---
Test Reason : Chest pain Blood Pressure : / mmHG Vent. Rate : 103 BPM Atrial Rate : 103 BPM P-R Int : 142 ms QRS Dur : 084 ms QT Int : 352 ms P-R-T Axes : 043 065 013 degrees QTc Int : 461 ms Sinus tachycardia Otherwise normal ECG No previous ECGs available Referred By: Brian Hussein Electronically Signed By:HARLEY ZUNIGA MD
--- NOTE | 2021-08-17 09:24 | PC.NURSE ---
At approximately 08:35 patient complained of midsternal chest pain. Patient denied it radiating anywhere. No shortness of breath or acute distress noted. Vital signs 110/68, heart rate of 111, RR of 18, o2 of 96%. Dr. Hussein notified and stat EKG ordered and completed. Results sent to [facility].
[2021-08-17] MEDS: LORazepam 1 MG TABLET 2 MG PO (13:42)
[2021-08-17] MEDS: chlorproMAZINE HCl 100 MG TABLET PO (13:42)
--- NOTE | 2021-08-17 17:53 | HO.PSYCHPN ---
Subjective Subjective Date of Service: 08/17/21 Reason For Visit: Bipolar Subjective Notes: Conditional Voluntary Medical Problems Affecting Mental Status: No Interim History: Pt continues with minimal sleep, confusion, lability of mood. Team reports no sleep in several days, delusions of . Olanzapine initiated, tolerated. Team reports pt is worsening without sleep in sx. Increase in paranoia regarding other male peers. Medication Compliance: Yes Side effects from medications: No Attending Groups: No Review of Systems Acute medical concerns: No Medical Review of Systems: unchanged Review of Systems Reports behavioral changes and Reports confusion Psychiatric: Reports abnormal sleep pattern, Reports anxiety, Reports behavioral changes, Reports confusion, Reports depression, Reports difficulty concentrating, Reports auditory hallucinations, Reports anhedonia, Reports visual hallucinations and Reports hallucinations Mental Status Exam Mental Status Exam Patient Appearance: Fatigued and Disheveled Patient Orientation: Person Level of Consciousness: Awake and Restless (mild) Patient Behavior: Guarded and Anxious Mood Description: Withdrawn Affect Description: Withdrawn Patient Cognition Impaired: Yes Ability to Follow Directions: Fair Speech Pattern: Perseverating and Spontaneous Speech Memory Description: Remote Impaired Hallucinations: Auditory and Visual Delusions: Paranoid Ideation and Present Perceptual Disturbances: Depersonalization Thought Process: Illogical and Rumination Thought Content: positive for Flight of Ideas, positive for Perseveration, positive for Thought Blocking, positive for Tangential and positive for Disorganized Depressive Symptoms: Increased Anxiety, Insomnia, Diff. Making Decisions, Difficulty Sleeping and Difficulty Concentrating Judgement: Poor Diagnostics Vital Signs (24Hr): Vital Signs - 24 hr 08/16/21 18:00 08/17/21 06:00 Temperature 97.3 F 97 F Pulse Rate 127 H 110 H Respiratory Rate 22 H Blood Pressure 134/84 137/92 H Pulse Oximetry 98 98 Labs Labs: Laboratory Results - last 48 hr 08/16/21 08/16/21 08/16/21 06:53 06:53 06:53 Estimat Average Glucose 94 Hemoglobin A1c % 4.9 Total Bilirubin < 0.2 Direct Bilirubin < 0.2 AST 18 ALT 15 Alkaline Phosphatase 44 Ammonia 24 Total Protein 6.7 Albumin 4.2 Triglycerides 41 Cholesterol 140 LDL Cholesterol, Calc 71 HDL Cholesterol 61 Valproic Acid 82.3 Medications Medications Current Medications Acetaminophen (Acetaminophen 325 Mg Tablet) 650 mg PO Q6H PRN PRN Reason: Headache/Pain Mild Scale (1-3) Last Admin: 08/11/21 19:07 Dose: 650 mg Documented by: Al Hydroxide/Mg Hydroxide (Magnesium Hydrox/Alum Hydrox 30 Ml Oral.Susp) 30 ml PO Q6H PRN PRN Reason: Heartburn/Nausea Last Admin: 08/16/21 18:04 Dose: 30 ml Documented by: Albuterol Sulfate (Albuterol Sulfate 90 Mcg 8 Gm Inhaler) 2 puff INHALE RQ4H PRN PRN Reason: Shortness of Breath Last Admin: 08/17/21 06:45 Dose: 2 puff Documented by: Chlorpromazine HCl (Chlorpromazine Hcl 100 Mg Tablet) 100 mg PO TID PRN PRN Reason: agitation, psychosis Last Admin: 08/17/21 13:42 Dose: 100 mg Documented by: Divalproex Sodium (Divalproex Sodium Er 500 Mg Tab.Er.24h) 1,000 mg PO BEDTIME SRAVANTHI Last Admin: 08/16/21 19:53 Dose: 1,000 mg Documented by: Divalproex Sodium (Divalproex Sodium Er 500 Mg Tab.Er.24h) 500 mg PO DAILY [facility] Last Admin: 08/17/21 08:17 Dose: 500 mg Documented by: Hydroxyzine HCl (Hydroxyzine Hcl 25 Mg Tablet) 25 mg PO QID PRN PRN Reason: Anxiety Last Admin: 08/17/21 06:48 Dose: 25 mg Documented by: Lamotrigine (Lamotrigine 100 Mg Tablet) 200 mg PO DAILY [facility] Last Admin: 08/17/21 08:17 Dose: 200 mg Documented by: Lorazepam (Lorazepam 1 Mg Tablet) 2 mg PO Q4H PRN PRN Reason: Anxiety Last Admin: 08/17/21 13:42 Dose: 2 mg Documented by: Magnesium Hydroxide (Milk Of Magnesia 30 Ml Oral.Susp) 30 ml PO DAILY PRN PRN Reason: Constipation Olanzapine (Olanzapine 2.5 Mg Tablet) 2.5 mg PO Q4H PRN PRN Reason: anxiety/psychosis/disorganization Last Admin: 08/17/21 03:29 Dose: 2.5 mg Documented by: Olanzapine (Olanzapine 10 Mg Tablet) 20 mg PO BEDTIME SRAVANTHI Prazosin HCl (Prazosin Hcl 1 Mg Capsule) 2 mg PO BEDTIME SRAVANTHI; Protocol Last Admin: 08/16/21 19:54 Dose: 2 mg Documented by: Trazodone HCl (Trazodone Hcl 50 Mg Tablet) 50 mg PO BEDTIME PRN PRN Reason: continued insomnia Last Admin: 08/17/21 00:36 Dose: 50 mg Documented by: Allergies Allergies Allergy/AdvReac Type Severity Reaction Status Date / Time amoxicillin Allergy Unknown Unknown Verified 08/10/21 14:06 clarithromycin [Biaxin] Allergy Unknown hives Verified 01/21/17 00:00 Assessment & Plan Assessment & Plan (1) Bipolar I disorder, most recent episode manic, severe with psychotic features: Status: Acute Code(s): F31.2 - Bipolar disorder, current episode manic severe with psychotic features 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 Hospital course: -initially patient moderately manic; bipolar depression under treated on current regimen. -will DC Prozac since it has not helped treat her depression and could contribute manic symptoms -will see if Abilify can help reduce gokul; seems like Zyprexa was helping patient sleep however she does not want this medication due to it makes her anxious she says acne 08/12 more manic and disorganized; did not sleep since off zyprexa; starting depakote. don't see UPT in transfer notes so will order 08/13 patient continues to be manic and disorganized, labile, paranoid with auditory hallucinations. It seems that Zyprexa which was started at [facility] ED while waiting for admission, was partially helpful; however patient wanted to come off it and start Depakote instead. Will continue with Depakote for now however if patient does not at least partially response soon will very likely adds another medication. Patient has insight to know that she has bipolar disorder and is currently manic in need of medications; however she does not grasp the severity has placed a 3 day wanting to discharge; she says she will retract but has not yet done so 5/10 less hyperactive and speech less pressured, but increase in AH and paranoid thoughts and confusion. Little to no sleep last night. Agrees to add Ziprasidone to regimen (zyprexa seemed helpful, but side-effects) 5 Remains less hyperactive and speech is not pressured however auditory hallucinations and paranoid delusional thoughts remain and At times seem to worsen. Patient is struggling to challenge her delusional thinking with reality but needs staff assistance to do so. She agrees to stop ziprasidone and start Risperdal. Patient is to disorganized to be able to function in the community and needs to remain on the unit until symptoms significantly reduce 08/16 low-dose Risperdal has not yet been helpful; given the continued upsetting auditory hallucinations and delusions, patient wants to just go ahead and retry Zyprexa which has been helpful in the past though it causes weight gain. Patient said she would retract. 08/17/21- Increase Olanzapine to 20 mg HS Lorazepam 2 mg q 4 hours prn Chlorpromazine 100 mg tid prn Pt with significant sleep deprivation and increasing sx. PLAN: 3 day Q 15 minute checks ONE Time dose of Zyprexa 5mg START Zyprexa 10mg qhs DC Risperdal (does not want to wait to see if helpful and rather go back to zyprexa) DC Ziprasidone: not helpful (though only at starting dose, AH worsened) Continue Depakote ER 500 mg in the a.m. and 1000 mg q.h.s.; helped reduce pressured speech and some hyperactivity Valproate level WNL LFTs and ammonia WNL Ativan 1mg qhs and as prn Continue Lamictal 200 mg daily Discontinue Prozac; patient says it has not helped her depression and it is possible it could contribute to having triggered manic episode along with Adderall Discontinue Zyprexa (started at [facility]):? Patient says she does not want DC abilify reportedly started at [facility]) DC scheduled trazodone Labs reviewed: CBC, LFTs, lytes, BUN/creatinine all within normal limits UDS negative COVID negative Urine : negative I spent minutes with the patient and/or on the patient floor today, greater than?50% of which was spent counseling/coordinating care. Informed Consent: does not understand Reason for contiued inpatient stay Substantial Risk for: harm to self, inability to function, rapid decompensation and med/psych decompensation
[2021-08-17 18:00] VITALS: BP 138/79; PULSE 118; TEMP 35.9
[2021-08-17] MEDS: Divalproex Sodium ER 500 MG TAB.ER.24H 1000 MG PO (21:11)
[2021-08-17] MEDS: OLANZapine 10 MG TABLET 20 MG PO (21:11)
[2021-08-17] MEDS: Prazosin HCL 1 MG CAPSULE 2 MG PO (21:12)
[2021-08-18] MEDS: LORazepam 1 MG TABLET 2 MG PO (05:10)
[2021-08-18] MEDS: OLANZapine 2.5 MG TABLET PO (05:10)
[2021-08-18 06:00] VITALS: BP 120/56; PULSE 122; RESP 16; O2SAT 98
[2021-08-18] MEDS: Divalproex Sodium ER 500 MG TAB.ER.24H PO (07:49)
[2021-08-18] MEDS: lamoTRIgine 100 MG TABLET 200 MG PO (07:49)
--- NOTE | 2021-08-18 08:11 | HO.PSYCHPN ---
Subjective Subjective Date of Service: 08/18/21 Reason For Visit: Bipolar Subjective Notes: Conditional Voluntary Healthcare Proxy: No Guardianship: No Medical Problems Affecting Mental Status: No Interim History: Patient was seen and discussed in rounds today. Records and plans were reviewed. She continues to be quite disorganized with paranoid delusions and delusions about . Has been quite labile. She is medication compliant. Eating and sleeping adequately. PRNs are being used with benefits. No complaints or side effects. No changes were made today Review of Systems Reports behavioral changes and Reports confusion Psychiatric: Reports abnormal sleep pattern, Reports anxiety, Reports behavioral changes, Reports confusion, Reports depression, Reports difficulty concentrating, Reports auditory hallucinations, Reports anhedonia, Reports visual hallucinations and Reports hallucinations Mental Status Exam Mental Status Exam Narrative: In today's visit she is alert, oriented. Speech is soft-spoken. The lie contact. Affect is appropriate and constricted. She admits to some auditory and visual hallucinations. Paranoid ideations and delusions about . No SI. Cognitively she has slow thought processes and ruminative thinking. Judgment is marginally intact Diagnostics Vital Signs (24Hr): Vital Signs - 24 hr 08/17/21 18:00 08/18/21 06:00 Temperature 96.7 F L Pulse Rate 118 H 122 H Respiratory Rate 16 Blood Pressure 138/79 120/56 L Pulse Oximetry 98 Medications Medications Current Medications Acetaminophen (Acetaminophen 325 Mg Tablet) 650 mg PO Q6H PRN PRN Reason: Headache/Pain Mild Scale (1-3) Last Admin: 08/11/21 19:07 Dose: 650 mg Documented by: Al Hydroxide/Mg Hydroxide (Magnesium Hydrox/Alum Hydrox 30 Ml Oral.Susp) 30 ml PO Q6H PRN PRN Reason: Heartburn/Nausea Last Admin: 08/16/21 18:04 Dose: 30 ml Documented by: Albuterol Sulfate (Albuterol Sulfate 90 Mcg 8 Gm Inhaler) 2 puff INHALE RQ4H PRN PRN Reason: Shortness of Breath Last Admin: 08/17/21 06:45 Dose: 2 puff Documented by: Chlorpromazine HCl (Chlorpromazine Hcl 100 Mg Tablet) 100 mg PO TID PRN PRN Reason: agitation, psychosis Last Admin: 08/17/21 13:42 Dose: 100 mg Documented by: Divalproex Sodium (Divalproex Sodium Er 500 Mg Tab.Er.24h) 1,000 mg PO BEDTIME SRAVANTHI Last Admin: 08/17/21 21:11 Dose: 1,000 mg Documented by: Divalproex Sodium (Divalproex Sodium Er 500 Mg Tab.Er.24h) 500 mg PO DAILY SRAVANTHI Last Admin: 08/18/21 07:49 Dose: 500 mg Documented by: Hydroxyzine HCl (Hydroxyzine Hcl 25 Mg Tablet) 25 mg PO QID PRN PRN Reason: Anxiety Last Admin: 08/17/21 06:48 Dose: 25 mg Documented by: Lamotrigine (Lamotrigine 100 Mg Tablet) 200 mg PO DAILY SRAVANTHI Last Admin: 08/18/21 07:49 Dose: 200 mg Documented by: Lorazepam (Lorazepam 1 Mg Tablet) 2 mg PO Q4H PRN PRN Reason: Anxiety Last Admin: 08/18/21 05:10 Dose: 2 mg Documented by: Magnesium Hydroxide (Milk Of Magnesia 30 Ml Oral.Susp) 30 ml PO DAILY PRN PRN Reason: Constipation Olanzapine (Olanzapine 2.5 Mg Tablet) 2.5 mg PO Q4H PRN PRN Reason: anxiety/psychosis/disorganization Last Admin: 08/18/21 05:10 Dose: 2.5 mg Documented by: Olanzapine (Olanzapine 10 Mg Tablet) 20 mg PO BEDTIME SRAVANTHI Last Admin: 08/17/21 21:11 Dose: 20 mg Documented by: Prazosin HCl (Prazosin Hcl 1 Mg Capsule) 2 mg PO BEDTIME SRAVANTHI; Protocol Last Admin: 08/17/21 21:12 Dose: 2 mg Documented by: Trazodone HCl (Trazodone Hcl 50 Mg Tablet) 50 mg PO BEDTIME PRN PRN Reason: continued insomnia Last Admin: 08/17/21 21:12 Dose: 50 mg Documented by: Allergies Allergies Allergy/AdvReac Type Severity Reaction Status Date / Time amoxicillin Allergy Unknown Unknown Verified 08/10/21 14:06 clarithromycin [Biaxin] Allergy Unknown hives Verified 01/21/17 00:00 Assessment & Plan Assessment & Plan (1) Bipolar I disorder, most recent episode manic, severe with psychotic features: Status: Acute Code(s): F31.2 - Bipolar disorder, current episode manic severe with psychotic features 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 Hospital course: -initially patient moderately manic; bipolar depression under treated on current regimen. -will DC Prozac since it has not helped treat her depression and could contribute manic symptoms -will see if Abilify can help reduce gokul; seems like Zyprexa was helping patient sleep however she does not want this medication due to it makes her anxious she says acne 08/12 more manic and disorganized; did not sleep since off zyprexa; starting depakote. don't see UPT in transfer notes so will order 08/13 patient continues to be manic and disorganized, labile, paranoid with auditory hallucinations. It seems that Zyprexa which was started at [facility] ED while waiting for admission, was partially helpful; however patient wanted to come off it and start Depakote instead. Will continue with Depakote for now however if patient does not at least partially response soon will very likely adds another medication. Patient has insight to know that she has bipolar disorder and is currently manic in need of medications; however she does not grasp the severity has placed a 3 day wanting to discharge; she says she will retract but has not yet done so 08/14 less hyperactive and speech less pressured, but increase in AH and paranoid thoughts and confusion. Little to no sleep last night. Agrees to add Ziprasidone to regimen (zyprexa seemed helpful, but side-effects) 08/15 Remains less hyperactive and speech is not pressured however auditory hallucinations and paranoid delusional thoughts remain and At times seem to worsen. Patient is struggling to challenge her delusional thinking with reality but needs staff assistance to do so. She agrees to stop ziprasidone and start Risperdal. Patient is to disorganized to be able to function in the community and needs to remain on the unit until symptoms significantly reduce 08/16 low-dose Risperdal has not yet been helpful; given the continued upsetting auditory hallucinations and delusions, patient wants to just go ahead and retry Zyprexa which has been helpful in the past though it causes weight gain. Patient said she would retract. 08/17/21- Increase Olanzapine to 20 mg HS Lorazepam 2 mg q 4 hours prn Chlorpromazine 100 mg tid prn Pt with significant sleep deprivation and increasing sx. PLAN: 3 day Q 15 minute checks ONE Time dose of Zyprexa 5mg START Zyprexa 10mg qhs DC Risperdal (does not want to wait to see if helpful and rather go back to zyprexa) DC Ziprasidone: not helpful (though only at starting dose, AH worsened) Continue Depakote ER 500 mg in the a.m. and 1000 mg q.h.s.; helped reduce pressured speech and some hyperactivity Valproate level WNL LFTs and ammonia WNL Ativan 1mg qhs and as prn Continue Lamictal 200 mg daily Discontinue Prozac; patient says it has not helped her depression and it is possible it could contribute to having triggered manic episode along with Adderall Discontinue Zyprexa (started at [facility]):? Patient says she does not want DC abilify reportedly started at [facility]) DC scheduled trazodone Labs reviewed: CBC, LFTs, lytes, BUN/creatinine all within normal limits UDS negative COVID negative Urine : negative 08/18/2021 continue current regimen and plan I spent minutes with the patient and/or on the patient floor today, greater than?50% of which was spent counseling/coordinating care. Reason for contiued inpatient stay Substantial Risk for: med/psych decompensation
[2021-08-18] MEDS: Acetaminophen 325 MG TABLET 650 MG PO ×2 (09:27→16:11)
[2021-08-18 19:40] VITALS: BP 130/81; PULSE 110
[2021-08-18] MEDS: Prazosin HCL 1 MG CAPSULE 2 MG PO (19:52)
[2021-08-18] MEDS: OLANZapine 10 MG TABLET 20 MG PO (19:52)
[2021-08-18] MEDS: Divalproex Sodium ER 500 MG TAB.ER.24H 1000 MG PO (19:53)
[2021-08-18] MEDS: chlorproMAZINE HCl 100 MG TABLET PO (20:50)
[2021-08-19] MEDS: OLANZapine 2.5 MG TABLET PO ×3 (00:28→19:25)
[2021-08-19] MEDS: traZODone HCL 50 MG TABLET PO ×2 (00:28→19:26)
[2021-08-19] MEDS: hydrOXYzine HCL 25 MG TABLET PO ×2 (00:29→12:48)
[2021-08-19 06:00] VITALS: BP 118/64; PULSE 112; RESP 20; TEMP 36.7; O2SAT 98
--- NOTE | 2021-08-19 07:39 | P.PNPSI_ITS ---
Subjective Subjective Date of Service: 08/19/21 Reason For Visit: Bipolar Subjective Notes: Conditional Voluntary Healthcare Proxy: No Guardianship: No Medical Problems Affecting Mental Status: No Interim History: Patient was seen and discussed in rounds today. Records and plans were reviewed. She continues to be isolative. She is quite confused, delusional and at times incoherent. Affect has been labile. Delusions about in babies persisting. No complaints or side effects. Eating and sleeping adequately. No changes were made today Review of Systems Review of Systems Yes all other systems are reviewed and are negative Mental Status Exam Mental Status Exam Narrative: In today's visit she is alert, oriented. Speech is soft-spoken and minimal no eye contact. Affect is appropriate and constricted with periods of being labile. She admits to some auditory and visual hallucinations. Paranoid ideations and delusions about . No SI. Cognitively she has slow thought processes and ruminative thinking. Judgment is marginally intact Diagnostics Vital Signs (24Hr): Vital Signs - 24 hr 08/18/21 19:40 08/19/21 06:00 Temperature 98.0 F Pulse Rate 110 H 112 H Respiratory Rate 20 Blood Pressure 130/81 118/64 Pulse Oximetry 98 Medications Medications Current Medications Acetaminophen (Acetaminophen 325 Mg Tablet) 650 mg PO Q6H PRN PRN Reason: Headache/Pain Mild Scale (1-3) Last Admin: 08/18/21 16:11 Dose: 650 mg Documented by: Al Hydroxide/Mg Hydroxide (Magnesium Hydrox/Alum Hydrox 30 Ml Oral.Susp) 30 ml PO Q6H PRN PRN Reason: Heartburn/Nausea Last Admin: 08/16/21 18:04 Dose: 30 ml Documented by: Albuterol Sulfate (Albuterol Sulfate 90 Mcg 8 Gm Inhaler) 2 puff INHALE RQ4H PRN PRN Reason: Shortness of Breath Last Admin: 08/17/21 06:45 Dose: 2 puff Documented by: Chlorpromazine HCl (Chlorpromazine Hcl 100 Mg Tablet) 100 mg PO TID PRN PRN Reason: agitation, psychosis Last Admin: 08/18/21 20:50 Dose: 100 mg Documented by: Divalproex Sodium (Divalproex Sodium Er 500 Mg Tab.Er.24h) 1,000 mg PO BEDTIME SRAVANTHI Last Admin: 08/18/21 19:53 Dose: 1,000 mg Documented by: Divalproex Sodium (Divalproex Sodium Er 500 Mg Tab.Er.24h) 500 mg PO DAILY SRAVANTHI Last Admin: 08/18/21 07:49 Dose: 500 mg Documented by: Hydroxyzine HCl (Hydroxyzine Hcl 25 Mg Tablet) 25 mg PO QID PRN PRN Reason: Anxiety Last Admin: 08/19/21 00:29 Dose: 25 mg Documented by: Lamotrigine (Lamotrigine 100 Mg Tablet) 200 mg PO DAILY SRAVANTHI Last Admin: 08/18/21 07:49 Dose: 200 mg Documented by: Lorazepam (Lorazepam 1 Mg Tablet) 2 mg PO Q4H PRN PRN Reason: Anxiety Last Admin: 08/18/21 05:10 Dose: 2 mg Documented by: Magnesium Hydroxide (Milk Of Magnesia 30 Ml Oral.Susp) 30 ml PO DAILY PRN PRN Reason: Constipation Olanzapine (Olanzapine 2.5 Mg Tablet) 2.5 mg PO Q4H PRN PRN Reason: anxiety/psychosis/disorganization Last Admin: 08/19/21 00:28 Dose: 2.5 mg Documented by: Olanzapine (Olanzapine 10 Mg Tablet) 20 mg PO BEDTIME SRAVANTHI Last Admin: 08/18/21 19:52 Dose: 20 mg Documented by: Prazosin HCl (Prazosin Hcl 1 Mg Capsule) 2 mg PO BEDTIME SRAVANTHI; Protocol Last Admin: 08/18/21 19:52 Dose: 2 mg Documented by: Trazodone HCl (Trazodone Hcl 50 Mg Tablet) 50 mg PO BEDTIME PRN PRN Reason: continued insomnia Last Admin: 08/19/21 00:28 Dose: 50 mg Documented by: Allergies Allergies Allergy/AdvReac Type Severity Reaction Status Date / Time amoxicillin Allergy Unknown Unknown Verified 08/10/21 14:06 clarithromycin [Biaxin] Allergy Unknown hives Verified 01/21/17 00:00 Assessment & Plan Assessment & Plan (1) Bipolar I disorder, most recent episode manic, severe with psychotic features: Status: Acute Code(s): F31.2 - Bipolar disorder, current episode manic severe with psychotic features 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 Hospital course: -initially patient moderately manic; bipolar depression under treated on current regimen. -will DC Prozac since it has not helped treat her depression and could c ontribute manic symptoms -will see if Abilify can help reduce gokul; seems like Zyprexa was helping patient sleep however she does not want this medication due to it makes her anxious she says acne 08/12 more manic and disorganized; did not sleep since off zyprexa; starting depakote. don't see UPT in transfer notes so will order 08/13 patient continues to be manic and disorganized, labile, paranoid with auditory hallucinations. It seems that Zyprexa which was started at [facility] ED while waiting for admission, was partially helpful; however patient wanted to come off it and start Depakote instead. Will continue with Depakote for now however if patient does not at least partially response soon will very likely adds another medication. Patient has insight to know that she has bipolar disorder and is currently manic in need of medications; however she does not grasp the severity has placed a 3 day wanting to discharge; she says she will retract but has not yet done so 08/14 less hyperactive and speech less pressured, but increase in AH and paranoid thoughts and confusion. Little to no sleep last night. Agrees to add Ziprasidone to regimen (zyprexa seemed helpful, but side-effects) 08/15 Remains less hyperactive and speech is not pressured however auditory hallucinations and paranoid delusional thoughts remain and At times seem to worsen. Patient is struggling to challenge her delusional thinking with reality but needs staff assistance to do so. She agrees to stop ziprasidone and start Risperdal. Patient is to disorganized to be able to function in the community and needs to remain on the unit until symptoms significantly reduce 08/16 low-dose Risperdal has not yet been helpful; given the continued upsetting auditory hallucinations and delusions, patient wants to just go ahead and retry Zyprexa which has been helpful in the past though it causes weight gain. Patient said she would retract. 08/17/21- Increase Olanzapine to 20 mg HS Lorazepam 2 mg q 4 hours prn Chlorpromazine 100 mg tid prn Pt with significant sleep deprivation and increasing sx. PLAN: 3 day Q 15 minute checks ONE Time dose of Zyprexa 5mg START Zyprexa 10mg qhs DC Risperdal (does not want to wait to see if helpful and rather go back to zyprexa) DC Ziprasidone: not helpful (though only at starting dose, AH worsened) Continue Depakote ER 500 mg in the a.m. and 1000 mg q.h.s.; helped reduce pressured speech and some hyperactivity Valproate level WNL LFTs and ammonia WNL Ativan 1mg qhs and as prn Continue Lamictal 200 mg daily Discontinue Prozac; patient says it has not helped her depression and it is possible it could contribute to having triggered manic episode along with Adderall Discontinue Zyprexa (started at [facility]):? Patient says she does not want DC abilify reportedly started at [facility]) DC scheduled trazodone Labs reviewed: CBC, LFTs, lytes, BUN/creatinine all within normal limits UDS negative COVID negative Urine : negative 08/18/2021 continue current regimen and plan 08/19/2021 continue current plans I spent minutes with the patient and/or on the patient floor today, gre ater than?50% of which was spent counseling/coordinating care. Reason for contiued inpatient stay Substantial Risk for: inability to function and med/psych decompensation
[2021-08-19] MEDS: lamoTRIgine 100 MG TABLET 200 MG PO (07:48)
[2021-08-19] MEDS: Divalproex Sodium ER 500 MG TAB.ER.24H PO (07:48)
[2021-08-19] MEDS: chlorproMAZINE HCl 100 MG TABLET PO ×2 (14:07→23:30)
[2021-08-19 19:20] VITALS: BP 110/71; PULSE 130
[2021-08-19] MEDS: Prazosin HCL 1 MG CAPSULE 2 MG PO (19:26)
[2021-08-19] MEDS: Divalproex Sodium ER 500 MG TAB.ER.24H 1000 MG PO (19:26)
[2021-08-19] MEDS: OLANZapine 10 MG TABLET 20 MG PO (19:26)
[2021-08-19] MEDS: LORazepam 1 MG TABLET 2 MG PO (23:30)
[2021-08-20 06:00] VITALS: BP 135/73; PULSE 120; RESP 20; TEMP 36.4; O2SAT 98
--- NOTE | 2021-08-20 09:09 | P.PNPSI_ITS ---
Subjective Subjective Date of Service: 08/20/21 Reason For Visit: Bipolar Interim History: remains manic and delusional. Pt created birthing chair thinking she about to give ; would not let staff flush toilet worried a baby was in the toilet. Pt agrees to starting LIthium which she's been on before. Sleeping a little with thorazine but not much more than an hour. Continues to have AH Mental Status Exam Mental Status Exam Narrative: Pt is alert and oriented; behavior is frequently disorganized, cooperative and overly friendly to paranoid; laughing inappropriately or tearful; well groomed, dressed in casual attire with good hygiene; mood is described as anxious and affect labile; eye contact appropriate; Speech is no longer pressured; normal volume and prosody; psychomotor agitation present;? thought process can be goal oriented for a time but easily becomes distracted and disorganize; Thought content is on random delusional topics but she also on current manic episode and tx; intermittent paranoid ideations about people; denies any SI/HI. +AH ?Patients insight and judgment are impaired. Diagnostics Vital Signs (24Hr): Vital Signs - 24 hr 08/19/21 19:20 08/20/21 06:00 Temperature 97.6 F Pulse Rate 130 H 120 H Respiratory Rate 20 Blood Pressure 110/71 135/73 Pulse Oximetry 98 Medications Medications Current Medications Acetaminophen (Acetaminophen 325 Mg Tablet) 650 mg PO Q6H PRN PRN Reason: Headache/Pain Mild Scale (1-3) Last Admin: 08/18/21 16:11 Dose: 650 mg Documented by: Al Hydroxide/Mg Hydroxide (Magnesium Hydrox/Alum Hydrox 30 Ml Oral.Susp) 30 ml PO Q6H PRN PRN Reason: Heartburn/Nausea Last Admin: 08/16/21 18:04 Dose: 30 ml Documented by: Albuterol Sulfate (Albuterol Sulfate 90 Mcg 8 Gm Inhaler) 2 puff INHALE RQ4H PRN PRN Reason: Shortness of Breath Last Admin: 08/17/21 06:45 Dose: 2 puff Documented by: Chlorpromazine HCl (Chlorpromazine Hcl 100 Mg Tablet) 100 mg PO TID PRN PRN Reason: agitation, psychosis Last Admin: 08/19/21 23:30 Dose: 100 mg Documented by: Divalproex Sodium (Divalproex Sodium Er 500 Mg Tab.Er.24h) 1,000 mg PO BEDTIME SRAVANTHI Last Admin: 08/19/21 19:26 Dose: 1,000 mg Documented by: Divalproex Sodium (Divalproex Sodium Er 500 Mg Tab.Er.24h) 500 mg PO DAILY SRAVANTHI Last Admin: 08/19/21 07:48 Dose: 500 mg Documented by: Hydroxyzine HCl (Hydroxyzine Hcl 25 Mg Tablet) 25 mg PO QID PRN PRN Reason: Anxiety Last Admin: 08/19/21 12:48 Dose: 25 mg Documented by: Lamotrigine (Lamotrigine 100 Mg Tablet) 200 mg PO DAILY SRAVANTHI Last Admin: 08/19/21 07:48 Dose: 200 mg Documented by: Lorazepam (Lorazepam 1 Mg Tablet) 2 mg PO Q4H PRN PRN Reason: Anxiety Last Admin: 08/19/21 23:30 Dose: 2 mg Documented by: Magnesium Hydroxide (Milk Of Magnesia 30 Ml Oral.Susp) 30 ml PO DAILY PRN PRN Reason: Constipation Olanzapine (Olanzapine 2.5 Mg Tablet) 2.5 mg PO Q4H PRN PRN Reason: anxiety/psychosis/disorganization Last Admin: 08/19/21 19:25 Dose: 2.5 mg Documented by: Olanzapine (Olanzapine 10 Mg Tablet) 20 mg PO BEDTIME SRAVANTHI Last Admin: 08/19/21 19:26 Dose: 20 mg Documented by: Prazosin HCl (Prazosin Hcl 1 Mg Capsule) 2 mg PO BEDTIME SRAVANTHI; Protocol Last Admin: 08/19/21 19:26 Dose: 2 mg Documented by: Trazodone HCl (Trazodone Hcl 50 Mg Tablet) 50 mg PO BEDTIME PRN PRN Reason: continued insomnia Last Admin: 08/19/21 19:26 Dose: 50 mg Documented by: Allergies Allergies Allergy/AdvReac Type Severity Reaction Status Date / Time amoxicillin Allergy Unknown Unknown Verified 08/10/21 14:06 clarithromycin [Biaxin] Allergy Unknown hives Verified 01/21/17 00:00 Assessment & Plan Assessment & Plan (1) Bipolar I disorder, most recent episode manic, severe with psychotic features: Status: Acute Code(s): F31.2 - Bipolar disorder, current episode manic severe with psychotic features 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 Hospital course: -initially patient moderately manic; bipolar depression under treated on current regimen. -will DC Prozac since it has not helped treat her depression and could contribute manic symptoms -will see if Abilify can help reduce gokul; seems like Zyprexa was helping patient sleep however she does not want this medication due to it makes her anxious she says acne 08/12 more manic and disorganized; did not sleep since off zyprexa; starting depakote. don't see UPT in transfer notes so will order 08/13 patient continues to be manic and disorganized, labile, paranoid with auditory hallucinations. It seems that Zyprexa which was started at [facility] ED while waiting for admission, was partially helpful; however patient wanted to come off it and start Depakote instead. Will continue with Depakote for now however if patient does not at least partially response soon will very likely adds another medication. Patient has insight to know that she has bipolar disorder and is currently manic in need of medications; however she does not grasp the severity has placed a 3 day wanting to discharge; she says she will retract but has not yet done so 08/14 less hyperactive and speech less pressured, but increase in AH and paranoid thoughts and confusion. Little to no sleep last night. Agrees to add Ziprasidone to regimen (zyprexa seemed helpful, but side-effects) 08/15 Remains less hyperactive and speech is not pressured however auditory hallucinations and paranoid delusional thoughts remain and At times seem to worsen. Patient is struggling to challenge her delusional thinking with reality but needs staff assistance to do so. She agrees to stop ziprasidone and start Risperdal. Patient is to disorganized to be able to function in the community and needs to remain on the unit until symptoms significantly reduce 08/16 low-dose Risperdal has not yet been helpful; given the continued upsetting auditory hallucinations and delusions, patient wants to just go ahead and retry Zyprexa which has been helpful in the past though it causes weight gain. Patient said she would retract. 08/17/21- Increase Olanzapine to 20 mg HS Lorazepam 2 mg q 4 hours prn Chlorpromazine 100 mg tid prn Pt with significant sleep deprivation and increasing sx. PLAN: 3 day Q 15 minute checks START [place] continue Thorazine prn Zyprexa 20mg qhs (likely dc) Likely DC zypexa prn DC Risperdal (does not want to wait to see if helpful and rather go back to zyprexa) DC Ziprasidone: not helpful (though only at starting dose, AH worsened) Continue Depakote ER 500 mg in the a.m. and 1000 mg q.h.s.; helped reduce pressured speech and some hyperactivity Valproate level WNL LFTs and ammonia WNL Ativan 1mg qhs and as prn Continue Lamictal 200 mg daily Discontinue Prozac; patient says it has not helped her depression and it is possible it could contribute to having triggered manic episode along with Adderall Discontinue Zyprexa (started at [facility]):? Patient says she does not want DC abilify reportedly started at [facility]) DC scheduled trazodone Labs reviewed: CBC, LFTs, lytes, BUN/creatinine all within normal limits UDS negative COVID negative Urine : negative 08/18/2021 continue current regimen and plan 08/19/2021 continue current plans I spent minutes with the patient and/or on the patient floor today, greater than?50% of which was spent counseling/coordinating care. Patient educated on: diagnosis and medication risk/benefits Informed Consent: understands Reason for contiued inpatient stay Substantial Risk for: inability to function
[2021-08-20] MEDS: Divalproex Sodium ER 500 MG TAB.ER.24H PO (09:16)
[2021-08-20] MEDS: lamoTRIgine 100 MG TABLET 200 MG PO (09:16)
[2021-08-20] MEDS: hydrOXYzine HCL 25 MG TABLET PO (11:55)
[2021-08-20] MEDS: Lithium Carbonate ER 300 MG TABLET.ER PO ×2 (15:00→19:58)
[2021-08-20] MEDS: Divalproex Sodium ER 500 MG TAB.ER.24H 1000 MG PO (19:59)
[2021-08-20] MEDS: OLANZapine 10 MG TABLET 20 MG PO (19:59)
[2021-08-20] MEDS: Prazosin HCL 1 MG CAPSULE 2 MG PO (19:59)
[2021-08-20 20:10] VITALS: BP 132/78; PULSE 85
[2021-08-20] MEDS: LORazepam 1 MG TABLET 2 MG PO (23:55)
[2021-08-20] MEDS: OLANZapine 2.5 MG TABLET PO (23:55)
[2021-08-20] MEDS: traZODone HCL 50 MG TABLET PO (23:57)
[2021-08-21 06:00] VITALS: BP 128/76; PULSE 119; RESP 20; TEMP 36.6; O2SAT 98
[2021-08-21] MEDS: Divalproex Sodium ER 500 MG TAB.ER.24H PO (08:47)
[2021-08-21] MEDS: lamoTRIgine 100 MG TABLET 200 MG PO (08:47)
--- NOTE | 2021-08-21 10:26 | P.PNPSI_ITS ---
Subjective Subjective Date of Service: 08/21/21 Reason For Visit: Bipolar Interim History: Met with patient and Her sister Camila. Patient is significantly improved. Patient herself says that she feels much better. She says she slept last night and all auditory hallucinations have ceas ed. She says she knows she is not at all that that was a delusion. Intermittently, She still makes some extraneous unrelated comments but knows that they are irrelevant to the conversation. Patient's sister Camila who visited her this weekend also agrees the patient is significantly better. Discussed treatment plan and patient agrees to continue with lithium at current dose. Will taper down Zyprexa and see if she can remain stable without this medication. Discussed whether not patient should remain on unit for other medication changes and while patient is open she would really like to discharge sooner than later and wants to see if it is possible to make further changes as an outpatient. She agrees however that her stability is fragile and wants to remain on the unit to make sure it will remain. Mental Status Exam Mental Status Exam Narrative: Pt is alert and oriented; behavior is organized, calm; no longer paranoid; well groomed, dressed in casual attire with good hygiene; mood is described as better and affect congruent, not labile; eye contact appropriate; Speech is normal rate, volume and prosody; no psychomotor agitation present;? thought process mostly be goal oriented; though intermittently tangential pt realizes this and can stop it; thought content is treatment and recovery; no delusional or paranoid thinking; denies any SI/HI. No AVH; Patients insight and judgment improved. Diagnostics Vital Signs (24Hr): Vital Signs - 24 hr 08/20/21 20:10 08/21/21 06:00 Temperature 97.9 F Pulse Rate 85 119 H Respiratory Rate 20 Blood Pressure 132/78 128/76 Pulse Oximetry 98 Medications Medications Current Medications Acetaminophen (Acetaminophen 325 Mg Tablet) 650 mg PO Q6H PRN PRN Reason: Headache/Pain Mild Scale (1-3) Last Admin: 08/18/21 16:11 Dose: 650 mg Documented by: Al Hydroxide/Mg Hydroxide (Magnesium Hydrox/Alum Hydrox 30 Ml Oral.Susp) 30 ml PO Q6H PRN PRN Reason: Heartburn/Nausea Last Admin: 08/16/21 18:04 Dose: 30 ml Documented by: Albuterol Sulfate (Albuterol Sulfate 90 Mcg 8 Gm Inhaler) 2 puff INHALE RQ4H PRN PRN Reason: Shortness of Breath Last Admin: 08/17/21 06:45 Dose: 2 puff Documented by: Chlorpromazine HCl (Chlorpromazine Hcl 100 Mg Tablet) 100 mg PO TID PRN PRN Reason: agitation, psychosis Last Admin: 08/19/21 23:30 Dose: 100 mg Documented by: Divalproex Sodium (Divalproex Sodium Er 500 Mg Tab.Er.24h) 1,000 mg PO BEDTIME SRAVANTHI Last Admin: 08/20/21 19:59 Dose: 1,000 mg Documented by: Divalproex Sodium (Divalproex Sodium Er 500 Mg Tab.Er.24h) 500 mg PO DAILY SRAVANTHI Last Admin: 08/21/21 08:47 Dose: 500 mg Documented by: Hydroxyzine HCl (Hydroxyzine Hcl 25 Mg Tablet) 25 mg PO QID PRN PRN Reason: Anxiety Last Admin: 08/20/21 11:55 Dose: 25 mg Documented by: Lamotrigine (Lamotrigine 100 Mg Tablet) 200 mg PO DAILY SRAVANTHI Last Admin: 08/21/21 08:47 Dose: 200 mg Documented by: [place] Carbonate ([place] Carbonate Er 300 Mg Tablet.Er) 600 mg PO BEDTIME SRAVANTHI Lorazepam (Lorazepam 1 Mg Tablet) 2 mg PO Q4H PRN PRN Reason: Anxiety Last Admin: 08/20/21 23:55 Dose: 2 mg Documented by: Magnesium Hydroxide (Milk Of Magnesia 30 Ml Oral.Susp) 30 ml PO DAILY PRN PRN Reason: Constipation Olanzapine (Olanzapine 2.5 Mg Tablet) 2.5 mg PO Q4H PRN PRN Reason: anxiety/psychosis/disorganization Last Admin: 08/20/21 23:55 Dose: 2.5 mg Documented by: Olanzapine (Olanzapine 10 Mg Tablet) 20 mg PO BEDTIME SRAVANTHI Last Admin: 08/20/21 19:59 Dose: 20 mg Documented by: Prazosin HCl (Prazosin Hcl 1 Mg Capsule) 2 mg PO BEDTIME SRAVANTHI; Protocol Last Admin: 08/20/21 19:59 Dose: 2 mg Documented by: Trazodone HCl (Trazodone Hcl 50 Mg Tablet) 50 mg PO BEDTIME PRN PRN Reason: continued insomnia Last Admin: 08/20/21 23:57 Dose: 50 mg Documented by: Allergies Allergies Allergy/AdvReac Type Severity Reaction Status Date / Time amoxicillin Allergy Unknown Unknown Verified 08/10/21 14:06 clarithromycin [Biaxin] Allergy Unknown hives Verified 01/21/17 00:00 Assessment & Plan Assessment & Plan (1) Bipolar I disorder, most recent episode manic, severe with psychotic features: Status: Acute Code(s): F31.2 - Bipolar disorder, current episode manic severe with psychotic features 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 Hospital course: -initially patient moderately manic; bipolar depression under treated on current regimen. -will DC Prozac since it has not helped treat her depression and could c ontribute manic symptoms -will see if Abilify can help reduce gokul; seems like Zyprexa was helping patient sleep however she does not want this medication due to it makes her anxious she says acne 5 more manic and disorganized; did not sleep since off zyprexa; starting depakote. don't see UPT in transfer notes so will order 08/13 patient continues to be manic and disorganized, labile, paranoid with auditory hallucinations. It seems that Zyprexa which was started at [facility] ED while waiting for admission, was partially helpful; however patient wanted to come off it and start Depakote instead. Will continue with Depakote for now however if patient does not at least partially response soon will very likely adds another medication. Patient has insight to know that she has bipolar disorder and is currently manic in need of medications; however she does not grasp the severity has placed a 3 day wanting to discharge; she says she will retract but has not yet done so 5/10 less hyperactive and speech less pressured, but increase in AH and paranoid thoughts and confusion. Little to no sleep last night. Agrees to add Ziprasidone to regimen (zyprexa seemed helpful, but side-effects) 5 Remains less hyperactive and speech is not pressured however auditory hallucinations and paranoid delusional thoughts remain and At times seem to worsen. Patient is struggling to challenge her delusional thinking with reality but needs staff assistance to do so. She agrees to stop ziprasidone and start Risperdal. Patient is to disorganized to be able to function in the community and needs to remain on the unit until symptoms significantly reduce 08/16 low-dose Risperdal has not yet been helpful; given the continued upsetting auditory hallucinations and delusions, patient wants to just go ahead and retry Zyprexa which has been helpful in the past though it causes weight gain. Patient said she would retract. 08/17/21- Increase Olanzapine to 20 mg HS; Lorazepam 2 mg q 4 hours prn; Chl orpromazine 100 mg tid prn; Pt with significant sleep deprivation and increasing sx. 08/21 patient significantly better on lithium; AH resolved, paranoid delusional thinking resolved; patient sleeping through the night and feels as if she is approaching back to her normal self; sister visiting who fully agrees. Will continue lithium and taper off and hopefully discontinue Zyprexa; goal is to see if patient can be stable on does lithium (and Lamictal); will continue to monitor and see if patient is appropriate for tapering down Depakote as an outpatient or if she needs to remain on the unit PLAN: 3 day Q 15 minute checks Continue lithium ER 600 mg q.h.s. continue Thorazine prn for now LOWER to Zyprexa 10mg qhs and then see if can discontinue Continue Depakote ER 500 mg in the a.m. and 1000 mg q.h.s.; helped reduce pressured speech and some hyperactivity; however it is possible patient may be able to remain stable on lithium (and Lamictal) Continue Lamictal 200 mg daily; patient has been on and this medication can also help with bipolar depression Valproate level WNL LFTs and ammonia WNL DC Ativan DC Risperdal (does not want to wait to see if helpful and rather go back to zyprexa) DC Ziprasidone: not helpful (though only at starting dose, AH worsened) DC Prozac; patient says it has not helped her depression and it is possible it could contribute to having triggered manic episode along with Adderall DC abilify reportedly started at [facility]) Labs reviewed: CBC, LFTs, lytes, BUN/creatinine all within normal limits UDS negative COVID negative Urine : negative 08/18/2021 continue current regimen and plan 08/19/2021 continue current plans I spent minutes with the patient and/or on the patient floor today, greater than?50% of which was spent counseling/coordinating care. Patient educated on: diagnosis and medication risk/benefits Informed Consent: understands Reason for contiued inpatient stay Substantial Risk for: rapid decompensation
[2021-08-21] MEDS: hydrOXYzine HCL 25 MG TABLET PO (14:27)
[2021-08-21 18:00] VITALS: BP 124/84; PULSE 98; RESP 18; TEMP 36.1; O2SAT 98
[2021-08-21] MEDS: Prazosin HCL 1 MG CAPSULE 2 MG PO (21:00)
[2021-08-21] MEDS: OLANZapine 10 MG TABLET PO (21:00)
[2021-08-21] MEDS: Lithium Carbonate ER 300 MG TABLET.ER 600 MG PO (21:00)
[2021-08-21] MEDS: Divalproex Sodium ER 500 MG TAB.ER.24H 1000 MG PO (22:58)
[2021-08-22 06:00] VITALS: BP 116/73; PULSE 100; RESP 18; TEMP 37; O2SAT 99
[2021-08-22] MEDS: Divalproex Sodium ER 500 MG TAB.ER.24H PO (08:21)
[2021-08-22] MEDS: lamoTRIgine 100 MG TABLET 200 MG PO (08:21)
--- NOTE | 2021-08-22 12:02 | HO.PSYCHPN ---
Subjective Subjective Date of Service: 08/22/21 Reason For Visit: Bipolar Interim History: Patient reports feeling better, even more so than yesterday, however, she is expressing more paranoid and delusional thinking than yesterday. Patient said that she is thinking maybe something she did is making people want to come after her. She said it something like a black curtain coming down. She said I feel like if I take my mask off an oxygen tank will explode. Patient says that she knows these things are delusions and not true however she still is thinking them. Yesterday she fully understood she is not and is not about to give however today she said she is not sure. Mental Status Exam Mental Status Exam Narrative: Pt is alert and oriented; behavior is organized but patient seems anxious; well groomed, dressed in casual attire with good hygiene; mood is described as better but affect anxious, furtive; eye contact appropriate; Speech is normal rate, volume and prosody; some psychomotor agitation present;? thought process distracted; can be goal oriented but also tangential; thought content is treatment and recovery but also on delusional or paranoid thinking; denies any SI/HI. No AVH; Patients insight and judgment improved but still impaired Diagnostics Vital Signs (24Hr): Vital Signs - 24 hr 08/21/21 18:00 08/22/21 06:00 Temperature 97 F 98.6 F Pulse Rate 98 100 Respiratory Rate 18 18 Blood Pressure 124/84 116/73 Pulse Oximetry 98 99 Medications Medications Current Medications Acetaminophen (Acetaminophen 325 Mg Tablet) 650 mg PO Q6H PRN PRN Reason: Headache/Pain Mild Scale (1-3) Last Admin: 08/18/21 16:11 Dose: 650 mg Documented by: Al Hydroxide/Mg Hydroxide (Magnesium Hydrox/Alum Hydrox 30 Ml Oral.Susp) 30 ml PO Q6H PRN PRN Reason: Heartburn/Nausea Last Admin: 08/16/21 18:04 Dose: 30 ml Documented by: Albuterol Sulfate (Albuterol Sulfate 90 Mcg 8 Gm Inhaler) 2 puff INHALE RQ4H PRN PRN Reason: Shortness of Breath Last Admin: 08/17/21 06:45 Dose: 2 puff Documented by: Chlorpromazine HCl (Chlorpromazine Hcl 100 Mg Tablet) 100 mg PO TID PRN PRN Reason: agitation, psychosis Last Admin: 08/19/21 23:30 Dose: 100 mg Documented by: Divalproex Sodium (Divalproex Sodium Er 500 Mg Tab.Er.24h) 1,000 mg PO BEDTIME SRAVANTHI Last Admin: 08/21/21 22:58 Dose: 1,000 mg Documented by: Divalproex Sodium (Divalproex Sodium Er 500 Mg Tab.Er.24h) 500 mg PO DAILY SRAVATNHI Last Admin: 08/22/21 08:21 Dose: 500 mg Documented by: Hydroxyzine HCl (Hydroxyzine Hcl 25 Mg Tablet) 25 mg PO QID PRN PRN Reason: Anxiety Last Admin: 08/21/21 14:27 Dose: 25 mg Documented by: Lamotrigine (Lamotrigine 100 Mg Tablet) 200 mg PO DAILY SRAVANTHI Last Admin: 08/22/21 08:21 Dose: 200 mg Documented by: [place] Carbonate ([place] Carbonate Er 300 Mg Tablet.Er) 600 mg PO BEDTIME SRAVANTHI Last Admin: 08/21/21 21:00 Dose: 600 mg Documented by: Magnesium Hydroxide (Milk Of Magnesia 30 Ml Oral.Susp) 30 ml PO DAILY PRN PRN Reason: Constipation Olanzapine (Olanzapine 10 Mg Tablet) 10 mg PO BEDTIME SRAVANTHI Last Admin: 08/21/21 21:00 Dose: 10 mg Documented by: Prazosin HCl (Prazosin Hcl 1 Mg Capsule) 2 mg PO BEDTIME SRAVANTHI; Protocol Last Admin: 08/21/21 21:00 Dose: 2 mg Documented by: Trazodone HCl (Trazodone Hcl 50 Mg Tablet) 50 mg PO BEDTIME PRN PRN Reason: continued insomnia Last Admin: 08/20/21 23:57 Dose: 50 mg Documented by: Allergies Allergies Allergy/AdvReac Type Severity Reaction Status Date / Time amoxicillin Allergy Unknown Unknown Verified 08/10/21 14:06 clarithromycin [Biaxin] Allergy Unknown hives Verified 01/21/17 00:00 haloperidol [From Haldol] AdvReac Intermediate dystonia Verified 08/21/21 13:39 Assessment & Plan Assessment & Plan (1) Bipolar I disorder, most recent episode manic, severe with psychotic features: Status: Acute Code(s): F31.2 - Bipolar disorder, current episode manic severe with psychotic features 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 Hospital course: -initially patient moderately manic; bipolar depression under treated on current regimen. -will DC Prozac since it has not helped treat her depression and could contribute manic symptoms -will see if Abilify can help reduce gokul; seems like Zyprexa was helping patient sleep however she does not want this medication due to it makes her anxious she says acne 08/12 more manic and disorganized; did not sleep since off zyprexa; starting depakote. don't see UPT in transfer notes so will order 08/13 patient continues to be manic and disorganized, labile, paranoid with auditory hallucinations. It seems that Zyprexa which was started at [facility] ED while waiting for admission, was partially helpful; however patient wanted to come off it and start Depakote instead. Will continue with Depakote for now however if patient does not at least partially response soon will very likely adds another medication. Patient has insight to know that she has bipolar disorder and is currently manic in need of medications; however she does not grasp the severity has placed a 3 day wanting to discharge; she says she will retract but has not yet done so 08/14 less hyperactive and speech less pressured, but increase in AH and paranoid thoughts and confusion. Little to no sleep last night. Agrees to add Ziprasidone to regimen (zyprexa seemed helpful, but side-effects) 08/15 Remains less hyperactive and speech is not pressured however auditory hallucinations and paranoid delusional thoughts remain and At times seem to worsen. Patient is struggling to challenge her delusional thinking with reality but needs staff assistance to do so. She agrees to stop ziprasidone and start Risperdal. Patient is to disorganized to be able to function in the community and needs to remain on the unit until symptoms significantly reduce 08/16 low-dose Risperdal has not yet been helpful; given the continued upsetting auditory hallucinations and delusions, patient wants to just go ahead and retry Zyprexa which has been helpful in the past though it causes weight gain. Patient said she would retract. 08/17/21- Increase Olanzapine to 20 mg HS; Lorazepam 2 mg q 4 hours prn; Chlorpromazine 100 mg tid prn; Pt with significant sleep deprivation and increasing sx. 08/21 patient significantly better on lithium; AH resolved, paranoid delusional thinking resolved; patient sleeping through the night and feels as if she is approaching back to her normal self; sister visiting who fully agrees. Will continue lithium and taper off and hopefully discontinue Zyprexa; goal is to see if patient can be stable on does lithium (and Lamictal); will continue to monitor and see if patient is appropriate for tapering down Depakote as an outpatient or if she needs to remain on the unit 08/22 Patient reports feeling continually better however she seems more paranoid and delusional today. Will get labs to see if ammonia level is within normal PLAN: 3 day Q 15 minute checks Labs: Check ammonia level, lytes, BUN/creatinine, liver Continue lithium ER 600 mg q.h.s. continue Thorazine prn for now LOWER to Zyprexa 10mg qhs and then see if can discontinue Continue Depakote ER 500 mg in the a.m. and 1000 mg q.h.s.; helped reduce pressured speech and some hyperactivity; however it is possible patient may be able to remain stable on lithium (and Lamictal) Continue Lamictal 200 mg daily; patient has been on and this medication can also help with bipolar depression Valproate level WNL LFTs and ammonia WNL DC Ativan DC Risperdal (does not want to wait to see if helpful and rather go back to zyprexa) DC Ziprasidone: not helpful (though only at starting dose, AH worsened) DC Prozac; patient says it has not helped her depression and it is possible it could contribute to having triggered manic episode along with Adderall DC abilify reportedly started at [facility]) Labs reviewed: CBC, LFTs, lytes, BUN/creatinine all within normal limits UDS negative COVID negative Urine : negative 08/18/2021 continue current regimen and plan 08/19/2021 continue current plans I spent minutes with the patient and/or on the patient floor today, greater than?50% of which was spent counseling/coordinating care. Patient educated on: diagnosis Informed Consent: understands Reason for contiued inpatient stay Substantial Risk for: inability to function
[2021-08-22] MEDS: hydrOXYzine HCL 25 MG TABLET PO (12:44)
[2021-08-22 17:19] LABS: Alanine Aminotransferase 10 U/L (0-31); Albumin Level 4.1 g/dL (3.5-5.0); Alkaline Phosphatase 43 U/L (39-117); Anion Gap 10 (12-20); Aspartate Amino Transferase 20 U/L (5-31); Bilirubin Direct < 0.2 mg/dL (0.0-0.5); Bilirubin Total 0.2 mg/dL (0.0-1.0); Carbon Dioxide 29 mmol/L (22-29); Chloride 102 mmol/L (96-108); Estimated Glomerular Filt Rate > 60; Potassium 4.4 mmol/L (3.3-5.1); Sodium 137 mmol/L (135-145)
[2021-08-22 17:58] LABS: Ammonia 30 umol/L (13-55)
[2021-08-22 22:30] VITALS: BP 118/81; PULSE 102; TEMP 36.9
[2021-08-22] MEDS: Lithium Carbonate ER 300 MG TABLET.ER 600 MG PO (22:40)
[2021-08-22] MEDS: Divalproex Sodium ER 500 MG TAB.ER.24H 1000 MG PO (22:40)
[2021-08-22] MEDS: Prazosin HCL 1 MG CAPSULE 2 MG PO (22:41)
[2021-08-23] MEDS: Divalproex Sodium ER 500 MG TAB.ER.24H PO (09:25)
[2021-08-23] MEDS: lamoTRIgine 100 MG TABLET 200 MG PO (09:25)
--- NOTE | 2021-08-23 11:03 | P.PNPSI_ITS ---
Subjective Subjective Date of Service: 08/23/21 Reason For Visit: Bipolar Interim History: Late entry for 08/23 Patient reports that she thinks she is better. She still feels some confusion but she says much less. She does not think she is and knows that those thoughts were delusional. She does not have auditory hallucinations however she does have a lot of thoughts about things her family would say and sometimes it feels like it might be auditory hallucinations. She agrees to discontinue the Zyprexa and continue with the lithium. She says if her normal self is a 10 she has about a 5 or a 6. Mental Status Exam Mental Status Exam Narrative: Pt is alert and oriented; behavior is organized; patient still anxious but less so; well groomed, dressed in casual attire with good hygiene; mood is described as better and affect more calm; eye contact appropriate; Speech is normal rate, volume and prosody; some psychomotor agitation present though less;? thought process can be distracted but less; thought content is treatment and recovery; denies any SI/HI. No AVH; Patients insight and judgment improved but still impaired Diagnostics Vital Signs (24Hr): Vital Signs - 24 hr 08/22/21 22:30 Temperature 98.5 F Pulse Rate 102 H Blood Pressure 118/81 Labs Results: 08/22/21 17:44 Labs: Laboratory Results - last 48 hr 08/22/21 08/22/21 17:44 17:44 Sodium 137 Potassium 4.4 Chloride 102 Carbon Dioxide 29 Anion Gap 10 L Creatinine 0.94 Estim Creat Clear Calc TNP Estimated GFR > 60 Total Bilirubin 0.2 Direct Bilirubin < 0.2 AST 20 ALT 10 Alkaline Phosphatase 43 Ammonia 30 Total Protein 7.0 Albumin 4.1 Medications Medications Current Medications Acetaminophen (Acetaminophen 325 Mg Tablet) 650 mg PO Q6H PRN PRN Reason: Headache/Pain Mild Scale (1-3) Last Admin: 08/18/21 16:11 Dose: 650 mg Documented by: Al Hydroxide/Mg Hydroxide (Magnesium Hydrox/Alum Hydrox 30 Ml Oral.Susp) 30 ml PO Q6H PRN PRN Reason: Heartburn/Nausea Last Admin: 08/16/21 18:04 Dose: 30 ml Documented by: Albuterol Sulfate (Albuterol Sulfate 90 Mcg 8 Gm Inhaler) 2 puff INHALE RQ4H PRN PRN Reason: Shortness of Breath Last Admin: 08/17/21 06:45 Dose: 2 puff Documented by: Chlorpromazine HCl (Chlorpromazine Hcl 100 Mg Tablet) 100 mg PO TID PRN PRN Reason: agitation, psychosis Last Admin: 08/19/21 23:30 Dose: 100 mg Documented by: Divalproex Sodium (Divalproex Sodium Er 500 Mg Tab.Er.24h) 1,000 mg PO BEDTIME SRAVANTHI Last Admin: 08/22/21 22:40 Dose: 1,000 mg Documented by: Divalproex Sodium (Divalproex Sodium Er 500 Mg Tab.Er.24h) 500 mg PO DAILY SRAVANTHI Last Admin: 08/23/21 09:25 Dose: 500 mg Documented by: Hydroxyzine HCl (Hydroxyzine Hcl 25 Mg Tablet) 25 mg PO QID PRN PRN Reason: Anxiety Last Admin: 08/22/21 12:44 Dose: 25 mg Documented by: Lamotrigine (Lamotrigine 100 Mg Tablet) 200 mg PO DAILY SRAVANTHI Last Admin: 08/23/21 09:25 Dose: 200 mg Documented by: [place] Carbonate ([place] Carbonate Er 300 Mg Tablet.Er) 600 mg PO BEDTIME SRAVANTHI Last Admin: 08/22/21 22:40 Dose: 600 mg Documented by: Magnesium Hydroxide (Milk Of Magnesia 30 Ml Oral.Susp) 30 ml PO DAILY PRN PRN Reason: Constipation Olanzapine (Olanzapine 10 Mg Tablet) 10 mg PO BEDTIME PRN PRN Reason: Insomnia Prazosin HCl (Prazosin Hcl 1 Mg Capsule) 2 mg PO BEDTIME SRAVANTHI; Protocol Last Admin: 08/22/21 22:41 Dose: 2 mg Documented by: Trazodone HCl (Trazodone Hcl 50 Mg Tablet) 50 mg PO BEDTIME PRN PRN Reason: continued insomnia Last Admin: 08/20/21 23:57 Dose: 50 mg Documented by: Allergies Allergies Allergy/AdvReac Type Severity Reaction Status Date / Time amoxicillin Allergy Unknown Unknown Verified 08/10/21 14:06 clarithromycin [Biaxin] Allergy Unknown hives Verified 01/21/17 00:00 haloperidol [From Haldol] AdvReac Intermediate dystonia Verified 08/21/21 13:39 Assessment & Plan Assessment & Plan (1) Bipolar I disorder, most recent episode manic, severe with psychotic fe atures: Status: Acute Code(s): F31.2 - Bipolar disorder, current episode manic severe with psychotic features 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 Hospital course: -initially patient moderately manic; bipolar depression under treated on current regimen. -will DC Prozac since it has not helped treat her depression and could contribute manic symptoms -will see if Abilify can help reduce gokul; seems like Zyprexa was helping patient sleep however she does not want this medication due to it makes her anxious she says acne 08/12 more manic and disorganized; did not sleep since off zyprexa; starting depakote. don't see UPT in transfer notes so will order 08/13 patient continues to be manic and disorganized, labile, paranoid with auditory hallucinations. It seems that Zyprexa which was started at [facility] ED while waiting for admission, was partially helpful; however patient wanted to come off it and start Depakote instead. Will continue with Depakote for now however if patient does not at least partially response soon will very likely adds another medication. Patient has insight to know that she has bipolar disorder and is currently manic in need of medications; however she does not grasp the severity has placed a 3 day wanting to discharge; she says she will retract but has not yet done so 5 less hyperactive and speech less pressured, but increase in AH and paranoid thoughts and confusion. Little to no sleep last night. Agrees to add Ziprasidone to regimen (zyprexa seemed helpful, but side-effects) 08/15 Remains less hyperactive and speech is not pressured however auditory hallucinations and paranoid delusional thoughts remain and At times seem to worsen. Patient is struggling to challenge her delusional thinking with reality but needs staff assistance to do so. She agrees to stop ziprasidone and start Risperdal. Patient is to disorganized to be able to function in the community and needs to remain on the unit until symptoms significantly reduce 08/16 low-dose Risperdal has not yet been helpful; given the continued upsetting auditory hallucinations and delusions, patient wants to just go ahead and retry Zyprexa which has been helpful in the past though it causes weight gain. Willie mcgraw said she would retract. 08/17/21- Increase Olanzapine to 20 mg HS; Lorazepam 2 mg q 4 hours prn; Ch lorpromazine 100 mg tid prn; Pt with significant sleep deprivation and increasing sx. 08/21 patient significantly better on lithium; AH resolved, paranoid delusional thinking resolved; patient sleeping through the night and feels as if she is approaching back to her normal self; sister visiting who fully agrees. Will continue lithium and taper off and hopefully discontinue Zyprexa; goal is to see if patient can be stable on does lithium (and Lamictal); will continue to monitor and see if patient is appropriate for tapering down Depakote as an outpatient or if she needs to remain on the unit 08/22 Patient reports feeling continually better however she seems more paranoid and delusional today. Will get labs to see if ammonia level is within normal 08/23 significantly better however still somewhat confused and not back to her baseline; will discontinue Zyprexa since he has not been taking and continue with lithium. Will continue to get collateral from her sister Camila PLAN: 3 day Q 15 minute checks Labs: Check ammonia level, lytes, BUN/creatinine, liver Continue lithium ER 600 mg q.h.s. continue Thorazine prn for now DC Zyprexa; patient has not been taking and continues to stabilize Continue Depakote ER 500 mg in the a.m. and 1000 mg q.h.s.; helped reduce pressured speech and some hyperactivity; however it is possible patient may be able to remain stable on lithium (and Lamictal) Continue Lamictal 200 mg daily; patient has been on and this medication can also help with bipolar depression Valproate level WNL LFTs and ammonia WNL DC Ativan DC Risperdal (does not want to wait to see if helpful and rather go back to zyprexa) DC Ziprasidone: not helpful (though only at starting dose, AH worsened) DC Prozac; patient says it has not helped her depression and it is possible it could contribute to having triggered manic episode along with Adderall DC abilify reportedly started at [facility]) Labs reviewed: CBC, LFTs, lytes, BUN/creatinine all within normal limits UDS negative COVID negative Urine : negative I spent minutes with the patient and/or on the patient floor today, greater than?50% of which was spent counseling/coordinating care. Patient educated on: diagnosis and medication risk/benefits Informed Consent: understands Reason for contiued inpatient stay Substantial Risk for: rapid decompensation
[2021-08-23] MEDS: hydrOXYzine HCL 25 MG TABLET PO (11:43)
[2021-08-23 11:57] VITALS: BP 105/74; PULSE 113; TEMP 36.5
[2021-08-23 20:20] VITALS: BP 140/85; PULSE 80
[2021-08-23] MEDS: Lithium Carbonate ER 300 MG TABLET.ER 600 MG PO (20:38)
[2021-08-23] MEDS: Prazosin HCL 1 MG CAPSULE 2 MG PO (20:38)
[2021-08-23] MEDS: Divalproex Sodium ER 500 MG TAB.ER.24H 1000 MG PO (20:38)
[2021-08-24 06:50] VITALS: PULSE 84; RESP 18; TEMP 36.6; O2SAT 96
[2021-08-24] MEDS: Divalproex Sodium ER 500 MG TAB.ER.24H PO (08:59)
[2021-08-24] MEDS: lamoTRIgine 100 MG TABLET 200 MG PO (08:59)
[2021-08-24] MEDS: Acetaminophen 325 MG TABLET 650 MG PO (11:17)
[2021-08-24] MEDS: chlorproMAZINE HCl 100 MG TABLET PO (14:36)
[2021-08-24 17:55] VITALS: BP 138/86; PULSE 86; RESP 18; TEMP 36.6; O2SAT 97
--- NOTE | 2021-08-24 20:09 | P.PNPSI_ITS ---
Subjective Subjective Date of Service: 08/24/21 Reason For Visit: Bipolar Interim History: Francia is anxious to discharge and is calling her family. Met with pt and Tang QUEEN. Review of meds, lab plans for the weekend and that discharge planning will be addressed next week. She verbalized understanding of this plan and concurs that it is reasonable. Medication Compliance: Yes Side effects from medications: No Attending Groups: Intermittent Review of Systems Acute medical concerns: No Medical Review of Systems: unchanged Mental Status Exam Mental Status Exam Patient Appearance: Appropriate Patient Orientation: Person, Place, Time and Situation Level of Consciousness: Alert Patient Behavior: Appropriate, Talkative, Cooperative and Good Eye Contact Mood Description: Anxious and Apprehensive Affect Description: Apprehensive Patient Cognition Impaired: No Ability to Follow Directions: Good Speech Pattern: Spontaneous Speech Memory Description: Intact Hallucinations: None Delusions: Not Present Thought Process: Distracted and Goal Oriented Thought Content: positive for Goal Oriented Judgement: Fair Diagnostics Vital Signs (24Hr): Vital Signs - 24 hr 08/23/21 20:20 08/24/21 06:50 08/24/21 17:55 Temperature 97.9 F 97.9 F Pulse Rate 80 84 86 Respiratory Rate 18 18 Blood Pressure 140/85 H 138/86 Pulse Oximetry 96 97 Labs Results: 08/22/21 17:44 Labs: Laboratory Results - last 48 hr 08/22/21 17:44 Sodium 137 Potassium 4.4 Chloride 102 Carbon Dioxide 29 Anion Gap 10 L Creatinine 0.94 Estim Creat Clear Calc TNP Estimated GFR > 60 Total Bilirubin 0.2 Direct Bilirubin < 0.2 AST 20 ALT 10 Alkaline Phosphatase 43 Total Protein 7.0 Albumin 4.1 Medications Medications Current Medications Acetaminophen (Acetaminophen 325 Mg Tablet) 650 mg PO Q6H PRN PRN Reason: Headache/Pain Mild Scale (1-3) Last Admin: 08/24/21 11:17 Dose: 650 mg Documented by: Al Hydroxide/Mg Hydroxide (Magnesium Hydrox/Alum Hydrox 30 Ml Oral.Susp) 30 ml PO Q6H PRN PRN Reason: Heartburn/Nausea Last Admin: 08/16/21 18:04 Dose: 30 ml Documented by: Albuterol Sulfate (Albuterol Sulfate 90 Mcg 8 Gm Inhaler) 2 puff INHALE RQ4H PRN PRN Reason: Shortness of Breath Last Admin: 08/17/21 06:45 Dose: 2 puff Documented by: Chlorpromazine HCl (Chlorpromazine Hcl 100 Mg Tablet) 100 mg PO TID PRN PRN Reason: agitation, psychosis Last Admin: 08/24/21 14:36 Dose: 100 mg Documented by: Divalproex Sodium (Divalproex Sodium Er 500 Mg Tab.Er.24h) 1,000 mg PO BEDTIME [facility] Last Admin: 08/23/21 20:38 Dose: 1,000 mg Documented by: Divalproex Sodium (Divalproex Sodium Er 500 Mg Tab.Er.24h) 500 mg PO DAILY [facility] Last Admin: 08/24/21 08:59 Dose: 500 mg Documented by: Hydroxyzine HCl (Hydroxyzine Hcl 25 Mg Tablet) 25 mg PO QID PRN PRN Reason: Anxiety Last Admin: 08/23/21 11:43 Dose: 25 mg Documented by: Lamotrigine (Lamotrigine 100 Mg Tablet) 200 mg PO DAILY [facility] Last Admin: 08/24/21 08:59 Dose: 200 mg Documented by: [place] Carbonate ([place] Carbonate Er 300 Mg Tablet.Er) 600 mg PO BEDTIME [facility] Last Admin: 08/23/21 20:38 Dose: 600 mg Documented by: Magnesium Hydroxide (Milk Of Magnesia 30 Ml Oral.Susp) 30 ml PO DAILY PRN PRN Reason: Constipation Prazosin HCl (Prazosin Hcl 1 Mg Capsule) 2 mg PO BEDTIME [facility]; Protocol Last Admin: 08/23/21 20:38 Dose: 2 mg Documented by: Trazodone HCl (Trazodone Hcl 50 Mg Tablet) 50 mg PO BEDTIME PRN PRN Reason: continued insomnia Last Admin: 08/20/21 23:57 Dose: 50 mg Documented by: Allergies Allergies Allergy/AdvReac Type Severity Reaction Status Date / Time amoxicillin Allergy Unknown Unknown Verified 08/10/21 14:06 clarithromycin [Biaxin] Allergy Unknown hives Verified 01/21/17 00:00 haloperidol [From Haldol] AdvReac Intermediate dystonia Verified 08/21/21 13:39 Assessment & Plan Assessment & Plan (1) Bipolar I disorder, most recent episode manic, severe with psychotic feature s: Status: Acute Code(s): F31.2 - Bipolar disorder, current episode manic severe with psychotic features 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 Hospital course: -initially patient moderately manic; bipolar depression under treated on current regimen. -will DC Prozac since it has not helped treat her depression and could contr ibute manic symptoms -will see if Abilify can help reduce gokul; seems like Zyprexa was helping peng ent sleep however she does not want this medication due to it makes her anxious she says acne 08/12 more manic and disorganized; did not sleep since off zyprexa; starting depakote. don't see UPT in transfer notes so will order 08/13 patient continues to be manic and disorganized, labile, paranoid with a uditory hallucinations. It seems that Zyprexa which was started at [facility] ED while waiting for admission, was partially helpful; however patient wanted to come off it and start Depakote instead. Will continue with Depakote for now however if patient does not at least partially response soon will very likely adds another medication. Patient has insight to know that she has bipolar disorder and is currently manic in need of medications; however she does not grasp the severity has placed a 3 day wanting to discharge; she says she will retract but has not yet done so 08/14 less hyperactive and speech less pressured, but increase in AH and paranoid thoughts and confusion. Little to no sleep last night. Agrees to add Ziprasidone to regimen (zyprexa seemed helpful, but side-effects) 08/15 Remains less hyperactive and speech is not pressured however auditory hallucinations and paranoid delusional thoughts remain and At times seem to worsen. Patient is struggling to challenge her delusional thinking with reality but needs staff assistance to do so. She agrees to stop ziprasidone and start Risperdal. Patient is to disorganized to be able to function in the community and needs to remain on the unit until symptoms significantly reduce 08/16 low-dose Risperdal has not yet been helpful; given the continued upsetting auditory hallucinations and delusions, patient wants to just go ahead and retry Zyprexa which has been helpful in the past though it causes weight gain. Patient said she would retract. 08/17/21- Increase Olanzapine to 20 mg HS; Lorazepam 2 mg q 4 hours prn; Chlorpr omazine 100 mg tid prn; Pt with significant sleep deprivation and increasing sx. 08/21 patient significantly better on lithium; AH resolved, paranoid delusional thinking resolved; patient sleeping through the night and feels as if she is approaching back to her normal self; sister visiting who fully agrees. Will continue lithium and taper off and hopefully discontinue Zyprexa; goal is to see if patient can be stable on does lithium (and Lamictal); will continue to monitor and see if patient is appropriate for tapering down Depakote as an outpatient or if she needs to remain on the unit 08/22 Patient reports feeling continually better however she seems more paranoid and delusional today. Will get labs to see if ammonia level is within normal 08/24/21: [place] and Valproate levels 08/25. Discharge planning PLAN: 3 day Q 15 minute checks Labs: Check ammonia level, lytes, BUN/creatinine, liver Continue lithium ER 600 mg q.h.s. continue Thorazine prn for now LOWER to Zyprexa 10mg qhs and then see if can discontinue Continue Depakote ER 500 mg in the a.m. and 1000 mg q.h.s.; helped reduce pressured speech and some hyperactivity; however it is possible patient may be able to remain stable on lithium (and Lamictal) Continue Lamictal 200 mg daily; patient has been on and this medication can also help with bipolar depression Valproate level WNL LFTs and ammonia WNL DC Ativan DC Risperdal (does not want to wait to see if helpful and rather go back to zyprexa) DC Ziprasidone: not helpful (though only at starting dose, AH worsened) DC Prozac; patient says it has not helped her depression and it is possible it could contribute to having triggered manic episode along with Adderall DC abilify reportedly started at [facility]) Labs reviewed: CBC, LFTs, lytes, BUN/creatinine all within normal limits UDS negative COVID negative Urine : negative 08/18/2021 continue current regimen and plan 08/19/2021 continue current plans I spent minutes with the patient and/or on the patient floor today, greater than?50% of which was spent counseling/coordinating care. Patient educated on: medication risk/benefits Informed Consent: understands and further education needed Reason for contiued inpatient stay Substantial Risk for: rapid decompensation
[2021-08-24 20:52] VITALS: BP 124/73; PULSE 98
[2021-08-24] MEDS: Lithium Carbonate ER 300 MG TABLET.ER 600 MG PO (20:53)
[2021-08-24] MEDS: Prazosin HCL 1 MG CAPSULE 2 MG PO (20:53)
[2021-08-24] MEDS: Divalproex Sodium ER 500 MG TAB.ER.24H 1000 MG PO (20:54)
[2021-08-25 06:00] VITALS: BP 117/69; PULSE 97; TEMP 37.2; O2SAT 99
[2021-08-25 08:02] LABS: Valproate 74.1 mcg/mL (50.0-100.0)
[2021-08-25] MEDS: Divalproex Sodium ER 500 MG TAB.ER.24H PO (08:54)
[2021-08-25] MEDS: lamoTRIgine 100 MG TABLET 200 MG PO (08:54)
[2021-08-25 18:00] VITALS: BP 131/84; PULSE 80; RESP 18; TEMP 36.6; O2SAT 98
[2021-08-25] MEDS: Divalproex Sodium ER 500 MG TAB.ER.24H 1000 MG PO (20:30)
[2021-08-25] MEDS: Lithium Carbonate ER 300 MG TABLET.ER 600 MG PO (20:30)
[2021-08-25] MEDS: Prazosin HCL 1 MG CAPSULE 2 MG PO (20:31)
[2021-08-25] MEDS: chlorproMAZINE HCl 100 MG TABLET PO (20:32)
--- NOTE | 2021-08-25 20:52 | HO.PSYCHPN ---
Subjective Subjective Date of Service: 08/25/21 Reason For Visit: Bipolar Subjective Notes: [place] Warning and Conditional Voluntary Healthcare Proxy: No Guardianship: No Medical Problems Affecting Mental Status: No Interim History: Patient seen and discussed with team. Per staff, she is calmer, less tearful. VPA level drawn 74.1 on 08/25/21. Patient evaluated today and upon interview she reports feeling good. Her visit with her bf went well. Says her sleep is good, energy is good. ? In the milieu, patient is safe and appropriate in behavior. Denies SI/SIB/HI upon inquiry. Denies irritability or assaultive ideation. Says she feels safe. Medication Compliance: Yes Side effects from medications: No Attending Groups: Yes Review of Systems Acute medical concerns: No Medical Review of Systems: unchanged Mental Status Exam Mental Status Exam Narrative: Patient Appearance:?Appropriate Patient Orientation:?Person, Place, Time and Situation Level of Consciousness:?Alert Patient Behavior:?Appropriate, Talkative, Cooperative and Good Eye Contact Mood Description:?Anxious and Apprehensive Affect Description:?Apprehensive Patient Cognition Impaired:?No Ability to Follow Directions:?Good Speech Pattern:?Spontaneous Speech Memory Description:?Intact Hallucinations:?None Delusions:?Not Present Thought Process:?Distracted and Goal Oriented Thought Content:?positive for Goal Oriented Judgment:?Fair Diagnostics Vital Signs (24Hr): Vital Signs - 24 hr 08/25/21 06:00 08/25/21 18:00 Temperature 99.0 F 98 F Pulse Rate 97 80 Respiratory Rate 18 Blood Pressure 117/69 131/84 Pulse Oximetry 99 98 Labs Results: 08/27/21 10:13 Labs: Laboratory Results - last 48 hr 08/25/21 07:21 Valproic Acid 74.1 Medications Medications Current Medications Acetaminophen (Acetaminophen 325 Mg Tablet) 650 mg PO Q6H PRN PRN Reason: Headache/Pain Mild Scale (1-3) Last Admin: 08/24/21 11:17 Dose: 650 mg Documented by: Al Hydroxide/Mg Hydroxide (Magnesium Hydrox/Alum Hydrox 30 Ml Oral.Susp) 30 ml PO Q6H PRN PRN Reason: Heartburn/Nausea Last Admin: 08/16/21 18:04 Dose: 30 ml Documented by: Albuterol Sulfate (Albuterol Sulfate 90 Mcg 8 Gm Inhaler) 2 puff INHALE RQ4H PRN PRN Reason: Shortness of Breath Last Admin: 08/17/21 06:45 Dose: 2 puff Documented by: Chlorpromazine HCl (Chlorpromazine Hcl 100 Mg Tablet) 100 mg PO TID PRN PRN Reason: agitation, psychosis Last Admin: 08/25/21 20:32 Dose: 100 mg Documented by: Divalproex Sodium (Divalproex Sodium Er 500 Mg Tab.Er.24h) 1,000 mg PO BEDTIME SRAVANTHI Last Admin: 08/25/21 20:30 Dose: 1,000 mg Documented by: Divalproex Sodium (Divalproex Sodium Er 500 Mg Tab.Er.24h) 500 mg PO DAILY SRAVANTHI Last Admin: 08/25/21 08:54 Dose: 500 mg Documented by: Hydroxyzine HCl (Hydroxyzine Hcl 25 Mg Tablet) 25 mg PO QID PRN PRN Reason: Anxiety Last Admin: 08/23/21 11:43 Dose: 25 mg Documented by: Lamotrigine (Lamotrigine 100 Mg Tablet) 200 mg PO DAILY SRAVANTHI Last Admin: 08/25/21 08:54 Dose: 200 mg Documented by: [place] Carbonate ([place] Carbonate Er 300 Mg Tablet.Er) 600 mg PO BEDTIME SRAVANTHI Last Admin: 08/25/21 20:30 Dose: 600 mg Documented by: Magnesium Hydroxide (Milk Of Magnesia 30 Ml Oral.Susp) 30 ml PO DAILY PRN PRN Reason: Constipation Prazosin HCl (Prazosin Hcl 1 Mg Capsule) 2 mg PO BEDTIME SRAVANTHI; Protocol Last Admin: 08/25/21 20:31 Dose: 2 mg Documented by: Trazodone HCl (Trazodone Hcl 50 Mg Tablet) 50 mg PO BEDTIME PRN PRN Reason: continued insomnia Last Admin: 08/20/21 23:57 Dose: 50 mg Documented by: Allergies Allergies Allergy/AdvReac Type Severity Reaction Status Date / Time amoxicillin Allergy Unknown Unknown Verified 08/10/21 14:06 clarithromycin [Biaxin] Allergy Unknown hives Verified 01/21/17 00:00 haloperidol [From Haldol] AdvReac Intermediate dystonia Verified 08/21/21 13:39 Assessment & Plan Assessment & Plan (1) Bipolar I disorder, most recent episode manic, severe with psychotic features: Status: Acute Code(s): F31.2 - Bipolar disorder, current episode manic severe with psychotic features 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 Hospital course: -initially patient moderately manic; bipolar depression under treated on current regimen. -will DC Prozac since it has not helped treat her depression and could contribute manic symptoms -will see if Abilify can help reduce gokul; seems like Zyprexa was helping patient sleep however she does not want this medication due to it makes her anxious she says acne 08/12 more manic and disorganized; did not sleep since off zyprexa; starting depakote. don't see UPT in transfer notes so will order 08/13 patient continues to be manic and disorganized, labile, paranoid with auditory hallucinations. It seems that Zyprexa which was started at [facility] ED while waiting for admission, was partially helpful; however patient wanted to come off it and start Depakote instead. Will continue with Depakote for now however if patient does not at least partially response soon will very likely adds another medication. Patient has insight to know that she has bipolar disorder and is currently manic in need of medications; however she does not grasp the severity has placed a 3 day wanting to discharge; she says she will retract but has not yet done so 08/14 less hyperactive and speech less pressured, but increase in AH and paranoid thoughts and confusion. Little to no sleep last night. Agrees to add Ziprasidone to regimen (zyprexa seemed helpful, but side-effects) 08/15 Remains less hyperactive and speech is not pressured however auditory hallucinations and paranoid delusional thoughts remain and At times seem to worsen. Patient is struggling to challenge her delusional thinking with reality but needs staff assistance to do so. She agrees to stop ziprasidone and start Risperdal. Patient is to disorganized to be able to function in the community and needs to remain on the unit until symptoms significantly reduce 08/16 low-dose Risperdal has not yet been helpful; given the continued upsetting auditory hallucinations and delusions, patient wants to just go ahead and retry Zyprexa which has been helpful in the past though it causes weight gain. Patient said she would retract. 08/17/21- Increase Olanzapine to 20 mg HS; Lorazepam 2 mg q 4 hours prn; Chlorpromazine 100 mg tid prn; Pt with significant sleep deprivation and increasing sx. 08/21 patient significantly better on lithium; AH resolved, paranoid delusional thinking resolved; patient sleeping through the night and feels as if she is approaching back to her normal self; sister visiting who fully agrees. Will continue lithium and taper off and hopefully discontinue Zyprexa; goal is to see if patient can be stable on does lithium (and Lamictal); will continue to monitor and see if patient is appropriate for tapering down Depakote as an outpatient or if she needs to remain on the unit 08/22 Patient reports feeling continually better however she seems more paranoid and delusional today. Will get labs to see if ammonia level is within normal 08/24/21: [place] and Valproate levels 08/25. Discharge planning 08/25/21: Pt does not want med changes, improving PLAN: 3 day Q 15 minute checks Labs: Check ammonia level, lytes, BUN/creatinine, liver Continue lithium ER 600 mg q.h.s. continue Thorazine prn for now LOWER to Zyprexa 10mg qhs and then see if can discontinue Continue Depakote ER 500 mg in the a.m. and 1000 mg q.h.s.; helped reduce pressured speech and some hyperactivity; however it is possible patient may be able to remain stable on lithium (and Lamictal) Continue Lamictal 200 mg daily; patient has been on and this medication can also help with bipolar depression Valproate level WNL LFTs and ammonia WNL DC Ativan DC Risperdal (does not want to wait to see if helpful and rather go back to zyprexa) DC Ziprasidone: not helpful (though only at starting dose, AH worsened) DC Prozac; patient says it has not helped her depression and it is possible it could contribute to having triggered manic episode along with Adderall DC abilify reportedly started at [facility]) Labs reviewed: CBC, LFTs, lytes, BUN/creatinine all within normal limits UDS negative COVID negative Urine : negative 08/18/2021 continue current regimen and plan 08/19/2021 continue current plans I spent minutes with the patient and/or on the patient floor today, greater than?50% of which was spent counseling/coordinating care. Patient educated on: therapeutic strategies Reason for contiued inpatient stay Substantial Risk for: med/psych decompensation
[2021-08-26 07:44] VITALS: BP 96/63; PULSE 103; TEMP 37.2; O2SAT 98
[2021-08-26] MEDS: lamoTRIgine 100 MG TABLET 200 MG PO (08:10)
[2021-08-26] MEDS: Divalproex Sodium ER 500 MG TAB.ER.24H PO (08:11)
[2021-08-26] MEDS: Acetaminophen 325 MG TABLET 650 MG PO (16:48)
[2021-08-26 18:00] VITALS: BP 100/67; PULSE 79; RESP 18; TEMP 36.8; O2SAT 98
[2021-08-26] MEDS: Lithium Carbonate ER 450 MG TABLET.ER PO (20:39)
[2021-08-26] MEDS: Prazosin HCL 1 MG CAPSULE 2 MG PO (20:39)
[2021-08-26] MEDS: Divalproex Sodium ER 500 MG TAB.ER.24H 1000 MG PO (20:40)
--- NOTE | 2021-08-26 21:43 | P.PNPSI_ITS ---
Subjective Subjective Date of Service: 08/26/21 Reason For Visit: Bipolar Subjective Notes: [place] Warning and Conditional Voluntary Healthcare Proxy: No Guardianship: No Medical Problems Affecting Mental Status: No Interim History: Patient seen and discussed with team. Patient evaluated today and upon interview she reports she is concerned about lithium, has been on it before, feels like its making my mouth so dry. Asks for a lower dose. Says Im sleeping good. Mood is good, stable. Denies racing thoughts, denies A/VH, denies delusional thoughts. Feels safe here. No questions or concerns.? In the milieu, patient is safe and appropriate in behavior. Denies SI/SIB/HI upon inquiry. Denies irritability or assaultive ideation. Says she feels safe. Medication Compliance: Yes Side effects from medications: Yes Attending Groups: Yes Review of Systems Acute medical concerns: No Medical Review of Systems: unchanged Mental Status Exam Mental Status Exam Narrative: Patient Appearance:?Appropriate Patient Orientation:?Person, Place, Time and Situation Level of Consciousness:?Alert Patient Behavior:?Appropriate, Talkative, Cooperative and Good Eye Contact Mood Description:?Anxious and Apprehensive Affect Description:?Apprehensive Patient Cognition Impaired:?No Ability to Follow Directions:?Good Speech Pattern:?Spontaneous Speech Memory Description:?Intact Hallucinations:?None Delusions:?Not Present Thought Process:?Distracted and Goal Oriented Thought Content:?positive for Goal Oriented Judgment:?Fair Diagnostics Vital Signs (24Hr): Vital Signs - 24 hr 08/27/21 06:46 Temperature 97.1 F Pulse Rate 89 Respiratory Rate 18 Blood Pressure 133/65 Pulse Oximetry 99 Labs Results: 08/27/21 10:13 Labs: Laboratory Results - last 48 hr 08/27/21 08/27/21 10:07 10:13 BUN 12 Creatinine 0.81 Estim Creat Clear Calc TNP Estimated GFR > 60 TSH 1.04 [place] 0.29 L Medications Allergies Allergies Allergy/AdvReac Type Severity Reaction Status Date / Time amoxicillin Allergy Unknown Unknown Verified 08/10/21 14:06 clarithromycin [Biaxin] Allergy Unknown hives Verified 01/21/17 00:00 haloperidol [From Haldol] AdvReac Intermediate dystonia Verified 08/21/21 13:39 Assessment & Plan Assessment & Plan (1) Bipolar I disorder, most recent episode manic, severe with psychotic features: Status: Acute Code(s): F31.2 - Bipolar disorder, current episode manic severe with psychotic features Plan 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 Hospital course: -initially patient moderately manic; bipolar depression under treated on current regimen. -will DC Prozac since it has not helped treat her depression and could contribute manic symptoms -will see if Abilify can help reduce gokul; seems like Zyprexa was helping patient sleep however she does not want this medication due to it makes her anxious she says acne 08/12 more manic and disorganized; did not sleep since off zyprexa; starting depakote. don't see UPT in transfer notes so will order 08/13 patient continues to be manic and disorganized, labile, paranoid with auditory hallucinations. It seems that Zyprexa which was started at [facility] ED while waiting for admission, was partially helpful; however patient wanted to come off it and start Depakote instead. Will continue with Depakote for now however if patient does not at least partially response soon will very likely adds another medication. Patient has insight to know that she has bipolar disorder and is currently manic in need of medications; however she does not grasp the severity has placed a 3 day wanting to discharge; she says she will retract but has not yet done so 5 less hyperactive and speech less pressured, but increase in AH and paranoid thoughts and confusion. Little to no sleep last night. Agrees to add Ziprasidone to regimen (zyprexa seemed helpful, but side-effects) 08/15 Remains less hyperactive and speech is not pressured however auditory hallucinations and paranoid delusional thoughts remain and At times seem to worsen. Patient is struggling to challenge her delusional thinking with reality but needs staff assistance to do so. She agrees to stop ziprasidone and start Risperdal. Patient is to disorganized to be able to function in the community and needs to remain on the unit until symptoms significantly reduce 08/16 low-dose Risperdal has not yet been helpful; given the continued upsetting auditory hallucinations and delusions, patient wants to just go ahead and retry Zyprexa which has been helpful in the past though it causes weight gain. Patient said she would retract. 08/17/21- Increase Olanzapine to 20 mg HS; Lorazepam 2 mg q 4 hours prn; Chlorpromazine 100 mg tid prn; Pt with significant sleep deprivation and increasing sx. 08/21 patient significantly better on lithium; AH resolved, paranoid delusional thinking resolved; patient sleeping through the night and feels as if she is approaching back to her normal self; sister visiting who fully agrees. Will continue lithium and taper off and hopefully discontinue Zyprexa; goal is to see if patient can be stable on does lithium (and Lamictal); will continue to monitor and see if patient is appropriate for tapering down Depakote as an outpatient or if she needs to remain on the unit 08/22 Patient reports feeling continually better however she seems more paranoid and delusional today. Will get labs to see if ammonia level is within normal 08/24/21: [place] and Valproate levels 08/25. Discharge planning 08/25/21: Pt does not want med changes, improving 08/26/21: Requests decrease in lithium due to dry mouth, discussed med options for treating this SE but prefers to lower the dose to 450 mg. PLAN: 3 day Q 15 minute checks Labs: Check ammonia level, lytes, BUN/creatinine, liver Continue lithium ER 600 mg q.h.s. continue Thorazine prn for now LOWER to Zyprexa 10mg qhs and then see if can discontinue Continue Depakote ER 500 mg in the a.m. and 1000 mg q.h.s.; helped reduce pressu red speech and some hyperactivity; however it is possible patient may be able to remain stable on lithium (and Lamictal) Continue Lamictal 200 mg daily; patient has been on and this medication can also help with bipolar depression Valproate level WNL LFTs and ammonia WNL DC Ativan DC Risperdal (does not want to wait to see if helpful and rather go back to zyprexa) DC Ziprasidone: not helpful (though only at starting dose, AH worsened) DC Prozac; patient says it has not helped her depression and it is possible it could contribute to having triggered manic episode along with Adderall DC abilify reportedly started at [facility]) Labs reviewed: CBC, LFTs, lytes, BUN/creatinine all within normal limits UDS negative COVID negative Urine : negative 08/18/2021 continue current regimen and plan 08/19/2021 continue current plans I spent minutes with the patient and/or on the patient floor today, greater than?50% of which was spent counseling/coordinating care. Reason for contiued inpatient stay Substantial Risk for: med/psych decompensation
[2021-08-26 22:35] VITALS: BP 102/68; PULSE 79; RESP 18; TEMP 36.8; O2SAT 98
[2021-08-27 06:46] VITALS: BP 133/65; PULSE 89; RESP 18; TEMP 36.2; O2SAT 99
[2021-08-27] MEDS: lamoTRIgine 100 MG TABLET 200 MG PO (08:06)
[2021-08-27] MEDS: Divalproex Sodium ER 500 MG TAB.ER.24H PO (08:06)
[2021-08-27 10:26] LABS: Lithium 0.29 mmol/L (0.60-1.20)
[2021-08-27 10:32] LABS: Blood Urea Nitrogen 12 mg/dL (9-16); Estimated Glomerular Filt Rate > 60
[2021-08-27 10:54] LABS: TSH reflex Free T4 1.04 uIU/mL (0.32-4.0)
--- NOTE | 2021-08-27 11:22 | P.DS_ITS ---
DS: Providers Provider Date of Service: 08/27/21 Date of admission: 08/10/21 15:30 Date of discharge: 08/27/21 Primary care physician: Unknown Physician Attending physician on admission: Brian Hussein Consults: 08/11/21 17:25 Consult to Hospitalist Routine Consulting Provider: Hospitalist Reason For Exam: admission physical Attending physician on discharge: Brian Hussein DS: Diagnosis Discharge Diagnosis (1) Bipolar I disorder, most recent episode manic, severe with psychotic features: Status: Acute DS: Medications Discharge Medications Home Medications: Previous Rx's Medication Instructions Recorded albuterol sulfate 90 mcg/actuation 2 puff INHALATION RQ4H PRN 30 Days 08/27/21 aerosol inhaler (Ventolin HFA) #6.7 g chlorpromazine 100 mg tablet 100 mg PO TID PRN 30 Days #30 tab 08/27/21 divalproex 500 mg tablet,extended 1,500 mg PO BEDTIME 30 Days #90 tab 08/27/21 release 24 hr lamotrigine 200 mg tablet 200 mg PO DAILY 30 Days #30 tab 08/27/21 lithium carbonate 300 mg 600 mg PO BEDTIME 30 Days #60 tab 08/27/21 tablet,extended release trazodone 50 mg tablet 50 mg PO BEDTIME PRN 30 Days #30 08/27/21 tab Mental Status Exam Mental Status Exam Narrative: Patient Appearance:?Appropriate Patient Orientation:?Person, Place, Time and Situation Level of Consciousness:?Alert Patient Behavior:?Appropriate, Talkative, Cooperative and Good Eye Contact Mood Description:?Anxious and Apprehensive Affect Description:?Apprehensive Patient Cognition Impaired:?No Ability to Follow Directions:?Good Speech Pattern:?Spontaneous Speech Memory Description:?Intact Hallucinations:?None Delusions:?Not Present Thought Process:?Distracted and Goal Oriented Thought Content:?positive for Goal Oriented Judgment:?Fair Data Data Completed and Pending Completed studies during hospitalization [Text1]: 08/22/21 08/22/21 08/25/21 17:44 17:44 07:21 Sodium 137 Potassium 4.4 Chloride 102 Carbon Dioxide 29 Anion Gap 10 L BUN Creatinine 0.94 Estim Creat Clear Calc TNP Estimated GFR > 60 Total Bilirubin 0.2 Direct Bilirubin < 0.2 AST 20 ALT 10 Alkaline Phosphatase 43 Ammonia 30 Total Protein 7.0 Albumin 4.1 TSH Valproic Acid 74.1 [place] 05/23/22 05/23/22 10:07 10:13 Sodium Potassium Chloride Carbon Dioxide Anion Gap BUN 12 Creatinine 0.81 Estim Creat Clear Calc TNP Estimated GFR > 60 Total Bilirubin Direct Bilirubin AST ALT Alkaline Phosphatase Ammonia Total Protein Albumin TSH 1.04 Valproic Acid [place] 0.29 L DS: Summary Hospital Course Hospital Course: Hospital course: 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 Throughout admission, Patient has insight to know that she has bipolar disorder and is currently manic in need of medications; however it took several medication trials to resolve symptoms. Patient was without any SI or HI throughout her admission. Patient wanted to avoid lithium and any medication the caused weight gain. -on admission, patient moderately manic; bipolar depression under treated on current regimen; DC Prozac since it has not helped treat her depression and could contribute manic symptoms -Although Zyprexa was helping patient sleep however she does not want this medication due to it makes her anxious she says acne -First tried to see if Abilify can help reduce gokul; however, if anything, patient more manic and disorganized; -Started depakote; pattient continues to be manic and disorganized, labile, paranoid and developed auditory hallucinations. Depakote was partially helpful and titrated to?Depakote ER 500 mg in the a.m. and 1000 mg q.h.s. which helped reduce pressured speech and some hyperactivity; patient however, she continued to be disorganized, labile and with psychotic symptoms; although she had insight she didnot grasp the severity and placed a 3 day, though later retracted. Patient remained overall less hyperactive and speech less pressured, but had an increase in AH and paranoid thoughts and confusion and was getting Little to no sleep last night. -added Ziprasidone to regimen which also was ineffective and discontinued -risperidone started which was also ineffective and psychotic symptoms of hallucinations and delusions remained; this was discontinued -patient eventually agreed to restart olanzapine since seemed partially helpful on admission; however this did not prove effective either. She was also using chlorpromazine as a p.r.n. -lithium trial: It was only until patient was started on lithium that her symptoms began to improve and paranoid delusional thinking resolved and patient started sleeping at night. Over subsequent days on both lithium and Depakote, patient continued to improve, become more organized and gokul is finally subsided. Patient's family frequently visited. Her older sister with whom she is very close agreed that patient is pretty much back to her normal self. Her father who was involved in very supportive also agreed that patient was pretty much back to her regular self and ready for discharge. Patient's boyfriend also weighted in and agreed that patient was back to her regular self. Patient remained in good mood, stable, without manic state or depressive symptoms, without any psychosis or SI or HI and feeling back to her regular self. She a understood the her medication regimen and agreed to continue with it, making modifications with her outpatient provider. She plan to remain on lithium and see if it was possible to taper off Depakote. She was going to continue with Thorazine as a p.r.n. since it helped her sleep to be used if any symptoms of gokul returned. Patient remained on Lamictal since it had been partially helpful in the past and is good for helping with depression. Patient's labs were within normal limits. Patient wanted discharge. Patient is future oriented, planning to complete nursing school; she has good family support. She was at her baseline and was not in imminent risk for harm to self or others. Her request for discharge honored. Time spent discussing smoking cessation with patient: 3 to 10 minutes Status at Discharge Functional status at discharge: independent ambulation Overall status at discharge: patient is back to baseline Time Spent with Patient Time attestation: Total time spent providing and/or coordinating discharge services: Time spent: Greater than 30 minutes Discharge Plan Discharge Patient Disposition: Home, Self-Care Discharge Diagnosis: Bipolar disorder type I, recurrent, severe with psychotic symptoms, in full remission Referrals: [facility] Partial Hospitalization program [Other] - Tomorrow (Referral to [facility]. Patient needs to follow-up with [facility] regarding referral.) [facility] [Other] - Tomorrow (Referral for outpatient therapy and psychiatry services Agency will follow-up with patient for appointments should she discharge prior to having appointments set. Should you not hear from agency please call [phone] to inquire about follow-up appointments for services.) Susan Verdin, SAM [Nurse Practitioner] - 1 Week (Office contacted and will contact patient when appointment is to be scheduled.) Discharge Medications: New albuterol sulfate [Ventolin HFA] 90 mcg/actuation Hfa Aerosol Inhaler 2 puff inhalation RQ4H PRN (Reason: Shortness Of Breath) 30 Days Qty: 6.7 0RF chlorpromazine 100 mg Tablet 100 mg PO TID PRN (Reason: agitation, psychosis) 30 Days Qty: 30 0RF divalproex 500 mg Tablet Extended Release 24 Hr 1,500 mg PO BEDTIME 30 Days Qty: 90 0RF lithium carbonate 300 mg Tablet Extended Release 600 mg PO BEDTIME 30 Days Qty: 60 0RF trazodone 50 mg Tablet 50 mg PO BEDTIME PRN (Reason: continued insomnia) 30 Days Qty: 30 0RF Continued lamotrigine 200 mg Tablet 200 mg PO DAILY 30 Days Qty: 30 0RF Discontinued fluoxetine 10 mg Capsule 10 mg PO DAILY fluoxetine 20 mg Capsule 20 mg PO DAILY olanzapine 5 mg Tablet 5 mg PO BEDTIME Discharge Orders: Discharge Order (Routine); Ordered 08/27/21 Ordered By: Brian Hussein Diet: regular diet Activity on Discharge: As tolerated Stand Alone Forms: Patient Portal Discharge page, Community Support Care Plan Goals: Maintain mood and safe behaviors Take medications as prescribed Practice coping skills Continue with outpatient providers and reach out to them as needed Health Concerns: Mood stability and behaviors Plan of Treatment: Follow up with your psychiatric provider and other outpatient providers regarding above concerns Take medications as prescribed Assessment: Risk assessment at time of discharge:? Patient was interviewed prior to discharge and found to be fully oriented and without any SI or HI. Patient has insight and demonstrates good judgment in terms of wanting to pursue treatment. Patient is not in imminent risk of harm to self or others and has a safety plan that includes presenting to the closest ER or calling 911 if feeling unsafe.? Patient has been observed closely by nursing and unit staff throughout admission; patient has not engaged in any behaviors that suggest dangerousness to self or others; once stable demonstrated appropriate behaviors and impulse control Discharge Date/Time: 08/27/21 15:08
== END 2021-08-27 15:08 | disposition home or self-care (01) | DRG 753 ==
PROVIDERS: Clinical Nurse Specialist Psychiatric/Mental Health, Adult; Admitting Provider Psychiatry & Neurology Psychiatry; Visit Provider Psychiatry & Neurology Psychiatry
DX: F31.2 Bipolar disorder, current episode manic severe with psychotic features (principal); Z79.899 Other long term (current) drug therapy; Z88.0 Allergy status to penicillin; Z88.1 Allergy status to other antibiotic agents; Z88.8 Allergy status to other drugs, medicaments and biological substances
CPT/HCPCS: 36415; 80051; 80061; 80076; 80164; 80178; 81025; 82140; 82565; 83036; 84443; 84520; 93005